=== PATIENT | male | born 1945 | race Caucasian/White ===

== ENCOUNTER → 2016-09-17 | Outpatient (CLI) | payer BC, MEDICARE, OTHER | END | disposition home or self-care (01) | LOC: C.PATHSPEC 12:45 | PROVIDERS: ATTEND Dermatology | DX: L82.1 Other seborrheic keratosis (principal) ==

== ENCOUNTER 2022-09-17 00:13 | Inpatient (IN) ==
[2022-09-17] MEDS ORDERED: SODIUM CHLORIDE 0.9% 1000ML 1,000 ML IV ONE ×2 (00:31→02:16)
[2022-09-17 00:50] LABS: HCO3 VBG 22 mmol/L; Oxygen Saturation VBG 93.7 %; PCO2 VBG 32 mmHg (38-50); PO2 VBG 66 mmHg; pH VBG 7.45 (7.36-7.41)
[2022-09-17 01:17] LABS: Albumin Level 3.4 gm/dl (3.4-5.0); BUN Creatinine Ratio 18.8 (10-20); Bilirubin Direct 0.3 mg/dl (0-0.2); Bilirubin,Total 0.9 mg/dl (0.2-1.0); Calcium 8.5 mg/dl (8.6-10.3); Creatinine Clr Calc Pharmacy 40.8 ml/min; Est GFR (African American) 50.1 ml/min; Est GFR (Non-African American) 43.2 ml/min; Magnesium 1.5 mg/dl (1.7-2.4); Potassium 3.7 mmol/L (3.5-5.1); Total Protein 6.3 gm/dl (6.0-8.3)
[2022-09-17 01:20] LABS: Basophils # (auto) 0.01 K/uL (0-0.2); Basophils % (auto) 0.2 %; Hematocrit (blood only) 36.7 % (42.0-52.0); Hemoglobin 12.6 g/dl (14.0-18.0); Immature Granulocytes # (auto) 0.11 K/uL (0.01-0.20); Immature Granulocytes % (auto) 2.1 %; Lymphocytes % (auto) 5.6 %; Mean Corpuscular Hemoglobin 31.7 pg (25.0-34.0); Mean Corpuscular Hgb Conc 34.3 g/dL (32.0-36.0); Mean Corpuscular Volume 92.4 fL (80.0-100.0); Mean Platelet Volume 10.7 fL (9.4-12.4); Monocytes # (auto) 0.12 K/uL (0.11-0.59); Monocytes % (auto) 2.3 %; Neutrophils # (auto) 4.77 K/uL (1.40-6.50); Neutrophils % (auto) 89.8 %; Platelet Count 67 K/uL (130-400); Platelet Estimate Decreased (Normal); RBC Morphology Unremarkable; RDW Coefficient of Variation 13.4 % (11.5-14.5); RDW Standard Deviation 45.9 fL (36.4-46.3); Red Blood Count 3.97 M/uL (4.70-6.10); White Blood Count 5.31 K/ul (4.8-10.8)
[2022-09-17 01:24] LABS: Troponin I High Sensitivity 20.7 pg/ml (0-20)
--- NOTE | 2022-09-17 01:25 | Emergency Department Note ---
Impression & Plan Severe sepsis, SEN (acute kidney injury), Acute UTI, Thrombocytopenia Admit to the [facility] ED Provider Note NAME: DIMA DEL VALLE AGE: 76 SEX: M ARRIVES VIA: Ambulance INFORMANT: Patient and his ED PROVIDER(S): Evelin Ruiz DO CHIEF COMPLAINT: Lower abdominal pain and shortness of breath PLAN: Disposition: Admit to the [facility] Condition: Critical MEDICAL DECISION MAKING: This is a 76-year-old male patient who has developed some increasing shortness of breath and lower abdominal pain. Patient then developed a fever. EMS was called and he was transported [facility]. The patient is a fairly healthy male. I have independently interpreted his labs which reveal a BUN of 29 and creatinine of 1.54 which represents acute kidney injury. There is no signifi cant leukocytosis. Patient has a hemoglobin of 12.6 and hematocrit of 36.7. Platelet count has dropped to 67. VBG was performed with the pH of 7.45, PCO2 of 32, bicarb of 22, and PO2 of 66. Patient did have elevated transaminases. There was concern for severe sepsis. Patient appeared dry on physical exam and was bolused with 30 mls per kilogram of IV crystalloid. Urinalysis appeared infected. Patient does describe a history of prostate issues in the past. Patient was treated with IV cefepime and IV vancomycin for severe sepsis and UTI. I did have some concern for a tickborne illness as the patient does spend significant time outside. Labs were also concerning for this. The patient was prophylactically treated with IV doxycycline as well. Triage Nursing notes reviewed and agree with them. Additional history obtained from his is at the bedside Vital Signs: reviewed and remarkable for hypotension and tachycardia Differential diagnosis: Sepsis, UTI, pneumonia, obstructive uropathy, diverticulitis, tickborne illness ER treatment provided: Cardiac monitoring Twelve-lead EKG IV normal saline boluses IV normal saline drip IV cefepime IV vancomycin IV doxycycline Diagnostics interpreted by me: ECG: Sinus tachycardia at [address] segment elevation or signs of ischemia. There is no ectopy. Cardiac Monitoring: Sinus tachycardia at 112 Laboratory studies: See below Imaging studies: As per my independent interpretation Portable chest x-ray: No cardiomegaly or pulmonary infiltrates/opacities HPI: 76/M arrives for evaluation of lower abdominal pain and shortness of b reath. Over the past 24 hours, the patient is developed increasing shortness of breath and lower abdominal pain. He noticed he had a fever and some hematuria. EMS was called and he was transported here. Patient explains that this is the first time he is ever been in the hospital. PAST MEDICAL HISTORY:Hypercholesterolemia; glaucoma Past surgical history: None SOCIAL HISTORY:Patient is retired from [employer]; he is HOME MEDICATIONS:See list ALLERGIES:None VITALS:See Below PHYSICAL EXAMINATION: HEENT: Head - normocephalic and atraumatic. Pupils are equal, round, and reactive to light. Extraocular eye muscles are intact, and sclera are anicteric. Nose - moist nasal mucosa without discharge. Mouth - moist buccal mucosa. Oropharynx is nonerythematous and there is no tonsillar exudate or edema noted. Neck: Supple; no cervical lymphadenopathy or nuchal rigidity Heart: Tachycardic rate and regular rhythm. There is a normal S1 and S2 with no murmurs, clicks, or gallops appreciated. Lungs: Clear to auscultation bilaterally with no wheezes, rales, or rhonchi. Abdomen: Soft and tender to palpation in the suprapubic region. There are no palpable pulsatile masses or hepatosplenomegaly. There is no guarding, rigidity, or rebound noted. Extremities: No evidence of cyanosis, clubbing, or edema. There are easily palpable peripheral pulses. Skin: warm and dry with good turgor and no rashes. ED COURSE: Times/Reassessments: 0020: Patient was evaluated in room B6. A complete history and physical was performed. A septic protocol was performed. An order was placed for continuous cardiac monitoring. The patient was in a sinus tachycardia at a rate of 112. A twelve- lead EKG was obtained as described above. A portable chest x-ray was performed. The patient was bolused with a liter of normal saline solution. A urine specimen was obtained. A second IV lock was initiated. Patient's blood pressure dropped and he was given an additional 1500 cc of IV crystalloid fluids. There was concern for severe sepsis. The patient was given a dose of IV cefepime. I added IV vancomycin to the antibiotic regimen. I reviewed laboratory and x-ray findings with the patient. We talked about the amount of time the patient spends outside. She denies any obvious tick bites but I still felt it would be prudent to add IV doxycycline. Patient's blood pressure remained marginal. He was placed on IV normal saline drip. I have personally spent greater than 60 minutes of critical care time in the direct management of this patient. This includes bedside care, interpretation of diagnostic studies, and testing, discussion with consultants, patient, and family members, and other required patient management activities. This 60 minutes is in excess of all separately billable procedures. Evelin Ruiz DO Past Med/Surg History Social History Smoking Status: Former smoker Tobacco Type: Pipe Second Hand Exposure: No; Do You Dip or Chew Tobacco: No; Tobacco Cessation Education Requested by Patient: No Hx Alcohol Use: No Hx Substance Use: No Preferred Language: Portuguese Communication Ability: Effective Beliefs That Will Affect Care: None Current Living Situation: Spouse Other Information That Helps Us Care for You: No Feels Safe at Home: Yes Safety Concerns: Feels Safe At This Time Assistive Devices: None Allergies Allergies Allergy/AdvReac Type Severity Reaction Status Date / Time Sulfa (Sulfonamide Allergy Intermediate Rash Verified 09/17/22 04:08 Antibiotics) Home Meds Home Medications Medication Instructions Recorded Confirmed aspirin 81 mg PO DAILY 09/17/22 09/17/22 simvastatin 10 mg tablet 10 mg PO HS 09/17/22 09/17/22 timolol maleate 0.5 % eye drops 1 drp OPB DAILY 09/17/22 09/17/22 Results & Data (ED) Vital Signs Vital Signs - 24 hr 09/17/22 00:23 09/17/22 00:32 09/17/22 00:32 Temperature 39.2 C H Temperature Source Oral Pulse Rate 106 H 108 H Respiratory Rate 17 26 H Respiratory Effort / Characteristics Short of Breath Respiratory Depth Normal Respiratory Pattern Regular Blood Pressure 95/63 L Blood Pressure Mean 73 Pulse Oximetry 86 L 93 92 Oxygen Delivery Method Room Air Nasal Cannula Nasal Cannula Oxygen Flow Rate 3 3 Sepsis Recent Fever Within 48 Hours Yes Sepsis New/Unexplained Change in Mental Status No Sepsis Action Taken by Nursing Physician Notified 09/17/22 00:47 09/17/22 00:41 09/17/22 01:00 Temperature Temperature Source Pulse Rate 112 H 102 H 100 H Respiratory Rate 22 27 H Respiratory Effort / Characteristics Respiratory Depth Respiratory Pattern Blood Pressure 104/66 Blood Pressure Mean 78 Pulse Oximetry 93 93 Oxygen Delivery Method Nasal Cannula Oxygen Flow Rate 3 Sepsis Recent Fever Within 48 Hours Sepsis New/Unexplained Change in Mental Status Sepsis Action Taken by Nursing 09/17/22 01:30 09/17/22 02:00 09/17/22 02:30 Temperature Temperature Source Pulse Rate 100 H 95 H 98 H Respiratory Rate 25 H 26 H 26 H Respiratory Effort / Characteristics Respiratory Depth Respiratory Pattern Blood Pressure 98/66 L 93/54 L 92/58 L Blood Pressure Mean 76 67 69 Pulse Oximetry 94 92 93 Oxygen Delivery Method Nasal Cannula Nasal Cannula Nasal Cannula Oxygen Flow Rate 3 3 3 Sepsis Recent Fever Within 48 Hours Sepsis New/Unexplained Change in Mental Status Sepsis Action Taken by Nursing 09/17/22 03:00 Temperature Temperature Source Pulse Rate 94 H Respiratory Rate 26 H Respiratory Effort / Characteristics Respiratory Depth Respiratory Pattern Blood Pressure Blood Pressure Mean Pulse Oximetry 96 Oxygen Delivery Method Nasal Cannula Oxygen Flow Rate 3 Sepsis Recent Fever Within 48 Hours Sepsis New/Unexplained Change in Mental Status Sepsis Action Taken by Nursing Laboratory Data 09/17/22 00:38 09/17/22 00:38 Lab Results 09/17/22 09/17/22 09/17/22 Range/Units 00:38 00:38 00:38 WBC 5.31 (4.8-10.8) K/ul RBC 3.97 L (4.70-6.10) M/uL Hgb 12.6 L (14.0-18.0) g/dl Hct 36.7 L (42.0-52.0) % MCV 92.4 (80.0-100.0) fL MCH 31.7 (25.0-34.0) pg MCHC 34.3 (32.0-36.0) g/dL RDW Std Deviation 45.9 (36.4-46.3) fL RDW Coeff of Kimmy 13.4 (11.5-14.5) % Plt Count 67 L (130-400) K/uL MPV 10.7 (9.4-12.4) fL Immature Gran % (Auto) 2.1 % Neut % (Auto) 89.8 % Lymph % (Auto) 5.6 % [place] % (Auto) 2.3 % Eos % (Auto) 0.0 % Baso % (Auto) 0.2 % Reticulocyte % (Auto) (0.5-2.0) % Neut # (Auto) 4.77 (1.40-6.50) K/uL Lymph # (Auto) 0.30 L (1.2-3.4) K/uL [place] # (Auto) 0.12 (0.11-0.59) K/uL Eos # (Auto) 0.00 (0-0.50) K/uL Baso # (Auto) 0.01 (0-0.2) K/uL Reticulocyte # (0.02-0.10) 10^6/uL Immature Gran # (Auto) 0.11 (0.01-0.20) K/uL Platelet Estimate Decreased L (Normal) RBC Morphology Unremarkable APTT (21.0-31.0) Seconds PTT Ratio VBG pH 7.45 H (7.36-7.41) VBG pCO2 32 L (38-50) mmHg VBG pO2 66 mmHg VBG HCO3 22 mmol/L VBG O2 Saturation 93.7 % VBG Base Excess -1.0 mEq/L Sodium 134 L (136-145) mmol/L Potassium 3.7 (3.5-5.1) mmol/L Chloride 104 (98-107) mmol/L Carbon Dioxide 22 (21-32) mmol/L Anion Gap 8 (3-11) BUN 29 H (6-23) mg/dl Creatinine 1.54 H (0.6-1.4) mg/dl Est Cr Clr Drug Dosing 40.8 ml/min Est GFR ( Amer) 50.1 ml/min Est GFR (Non-Af Amer) 43.2 ml/min BUN/Creatinine Ratio 18.8 (10-20) Glucose 117 H (70-99(Fasting)) mg/dl Lactate (0.4-2.0) mmol/L Calcium 8.5 L (8.6-10.3) mg/dl Magnesium 1.5 L (1.7-2.4) mg/dl Total Bilirubin 0.9 (0.2-1.0) mg/dl Direct Bilirubin 0.3 H (0-0.2) mg/dl AST 48 H (13-39) U/L ALT 37 (7-52) U/L Alkaline Phosphatase 41 (34-104) U/L Total Creatine Kinase 181 (30-223) U/L Troponin I High Sens 20.7 H (0-20) pg/ml Total Protein 6.3 (6.0-8.3) gm/dl Albumin 3.4 (3.4-5.0) gm/dl Vitamin B12 (180-914) pg/ml Folate (>5.38) ng/ml Procalcitonin (0-0.5) ng/ml Urine Color Urine Appearance (Clear) Urine pH (4.5-7.5) Ur Specific [place] (1.000-1.030) Urine Protein (Negative) Urine Glucose (UA) (Negative) Urine Ketones (Negative) Urine Blood (Negative) Urine Nitrite (Negative) Urine Bilirubin (Negative) Urine Urobilinogen (Negative) Ur Leukocyte Esterase (Negative) Urine WBC (Auto) (0-5) /hpf Urine RBC (Auto) (0-4) /hpf U Hyaline Cast (Auto) (0-5) /lpf U Epithel Cells (Auto) (0-5) /lpf Urine Bacteria (Auto) (Negative) Urine Yeast Anaplasma Smear Babesia Smear Lyme Disease IgG Ab (Negative) Lyme Disease IgM Ab (Negative) SARS-CoV-2 (PCR) (Negative) Influenza Type A (PCR) (Neg) Influenza Type B (PCR) (Neg) RSV (RT-PCR) (Neg) 09/17/22 09/17/22 09/17/22 Range/Units 00:38 00:38 00:38 WBC (4.8-10.8) K/ul RBC (4.70-6.10) M/uL Hgb (14.0-18.0) g/dl Hct (42.0-52.0) % MCV (80.0-100.0) fL MCH (25.0-34.0) pg MCHC (32.0-36.0) g/dL RDW Std Deviation (36.4-46.3) fL RDW Coeff of Kimmy (11.5-14.5) % Plt Count (130-400) K/uL MPV (9.4-12.4) fL Immature Gran % (Auto) % Neut % (Auto) % Lymph % (Auto) % [place] % (Auto) % Eos % (Auto) % Baso % (Auto) % Reticulocyte % (Auto) (0.5-2.0) % Neut # (Auto) (1.40-6.50) K/uL Lymph # (Auto) (1.2-3.4) K/uL [place] # (Auto) (0.11-0.59) K/uL Eos # (Auto) (0-0.50) K/uL Baso # (Auto) (0-0.2) K/uL Reticulocyte # (0.02-0.10) 10^6/uL Immature Gran # (Auto) (0.01-0.20) K/uL Platelet Estimate (Normal) RBC Morphology APTT 28.6 (21.0-31.0) Seconds PTT Ratio 1.0 VBG pH (7.36-7.41) VBG pCO2 (38-50) mmHg VBG pO2 mmHg VBG HCO3 mmol/L VBG O2 Saturation % VBG Base Excess mEq/L Sodium (136-145) mmol/L Potassium (3.5-5.1) mmol/L Chloride (98-107) mmol/L Carbon Dioxide (21-32) mmol/L Anion Gap (3-11) BUN (6-23) mg/dl Creatinine (0.6-1.4) mg/dl Est Cr Clr Drug Dosing ml/min Est GFR ( Amer) ml/min Est GFR (Non-Af Amer) ml/min BUN/Creatinine Ratio (10-20) Glucose (70-99(Fasting)) mg/dl Lactate 1.2 (0.4-2.0) mmol/L Calcium (8.6-10.3) mg/dl Magnesium (1.7-2.4) mg/dl Total Bilirubin (0.2-1.0) mg/dl Direct Bilirubin (0-0.2) mg/dl AST (13-39) U/L ALT (7-52) U/L Alkaline Phosphatase (34-104) U/L Total Creatine Kinase (30-223) U/L Troponin I High Sens (0-20) pg/ml Total Protein (6.0-8.3) gm/dl Albumin (3.4-5.0) gm/dl Vitamin B12 (180-914) pg/ml Folate (>5.38) ng/ml Procalcitonin 4.64 H (0-0.5) ng/ml Urine Color Urine Appearance (Clear) Urine pH (4.5-7.5) Ur Specific [place] (1.000-1.030) Urine Protein (Negative) Urine Glucose (UA) (Negative) Urine Ketones (Negative) Urine Blood (Negative) Urine Nitrite (Negative) Urine Bilirubin (Negative) Urine Urobilinogen (Negative) Ur Leukocyte Esterase (Negative) Urine WBC (Auto) (0-5) /hpf Urine RBC (Auto) (0-4) /hpf U Hyaline Cast (Auto) (0-5) /lpf U Epithel Cells (Auto) (0-5) /lpf Urine Bacteria (Auto) (Negative) Urine Yeast Anaplasma Smear Babesia Smear Lyme Disease IgG Ab (Negative) Lyme Disease IgM Ab (Negative) SARS-CoV-2 (PCR) (Negative) Influenza Type A (PCR) (Neg) Influenza Type B (PCR) (Neg) RSV (RT-PCR) (Neg) 09/17/22 09/17/22 09/17/22 Range/Units 00:40 02:00 02:36 WBC (4.8-10.8) K/ul RBC (4.70-6.10) M/uL Hgb (14.0-18.0) g/dl Hct (42.0-52.0) % MCV (80.0-100.0) fL MCH (25.0-34.0) pg MCHC (32.0-36.0) g/dL RDW Std Deviation (36.4-46.3) fL RDW Coeff of Kimmy (11.5-14.5) % Plt Count (130-400) K/uL MPV (9.4-12.4) fL Immature Gran % (Auto) % Neut % (Auto) % Lymph % (Auto) % [place] % (Auto) % Eos % (Auto) % Baso % (Auto) % Reticulocyte % (Auto) (0.5-2.0) % Neut # (Auto) (1.40-6.50) K/uL Lymph # (Auto) (1.2-3.4) K/uL [place] # (Auto) (0.11-0.59) K/uL Eos # (Auto) (0-0.50) K/uL Baso # (Auto) (0-0.2) K/uL Reticulocyte # (0.02-0.10) 10^6/uL Immature Gran # (Auto) (0.01-0.20) K/uL Platelet Estimate (Normal) RBC Morphology APTT (21.0-31.0) Seconds PTT Ratio VBG pH (7.36-7.41) VBG pCO2 (38-50) mmHg VBG pO2 mmHg VBG HCO3 mmol/L VBG O2 Saturation % VBG Base Excess mEq/L Sodium (136-145) mmol/L Potassium (3.5-5.1) mmol/L Chloride (98-107) mmol/L Carbon Dioxide (21-32) mmol/L Anion Gap (3-11) BUN (6-23) mg/dl Creatinine (0.6-1.4) mg/dl Est Cr Clr Drug Dosing ml/min Est GFR ( Amer) ml/min Est GFR (Non-Af Amer) ml/min BUN/Creatinine Ratio (10-20) Glucose (70-99(Fasting)) mg/dl Lactate (0.4-2.0) mmol/L Calcium (8.6-10.3) mg/dl Magnesium (1.7-2.4) mg/dl Total Bilirubin (0.2-1.0) mg/dl Direct Bilirubin (0-0.2) mg/dl AST (13-39) U/L ALT (7-52) U/L Alkaline Phosphatase (34-104) U/L Total Creatine Kinase (30-223) U/L Troponin I High Sens (0-20) pg/ml Total Protein (6.0-8.3) gm/dl Albumin (3.4-5.0) gm/dl Vitamin B12 (180-914) pg/ml Folate (>5.38) ng/ml Procalcitonin (0-0.5) ng/ml Urine Color Yellow Urine Appearance Cloudy A (Clear) Urine pH 6.0 (4.5-7.5) Ur Specific [place] 1.016 (1.000-1.030) Urine Protein 1+ H (Negative) Urine Glucose (UA) Negative (Negative) Urine Ketones Negative (Negative) Urine Blood 3+ H (Negative) Urine Nitrite Positive A (Negative) Urine Bilirubin Negative (Negative) Urine Urobilinogen Negative (Negative) Ur Leukocyte Esterase 3+ H (Negative) Urine WBC (Auto) >30 H (0-5) /hpf Urine RBC (Auto) >30 H (0-4) /hpf U Hyaline Cast (Auto) 0 (0-5) /lpf U Epithel Cells (Auto) 5-10 H (0-5) /lpf Urine Bacteria (Auto) Negative (Negative) Urine Yeast Not Reportable Anaplasma Smear Babesia Smear Lyme Disease IgG Ab Negative (Negative) Lyme Disease IgM Ab Negative (Negative) SARS-CoV-2 (PCR) NEGATIVE (Negative) Influenza Type A (PCR) Negative (Neg) Influenza Type B (PCR) Negative (Neg) RSV (RT-PCR) Negative (Neg) 09/17/22 09/17/22 Range/Units 02:36 02:36 WBC (4.8-10.8) K/ul RBC (4.70-6.10) M/uL Hgb (14.0-18.0) g/dl Hct (42.0-52.0) % MCV (80.0-100.0) fL MCH (25.0-34.0) pg MCHC (32.0-36.0) g/dL RDW Std Deviation (36.4-46.3) fL RDW Coeff of Kimmy (11.5-14.5) % Plt Count (130-400) K/uL MPV (9.4-12.4) fL Immature Gran % (Auto) % Neut % (Auto) % Lymph % (Auto) % [place] % (Auto) % Eos % (Auto) % Baso % (Auto) % Reticulocyte % (Auto) 1.4 (0.5-2.0) % Neut # (Auto) (1.40-6.50) K/uL Lymph # (Auto) (1.2-3.4) K/uL [place] # (Auto) (0.11-0.59) K/uL Eos # (Auto) (0-0.50) K/uL Baso # (Auto) (0-0.2) K/uL Reticulocyte # 0.05 (0.02-0.10) 10^6/uL Immature Gran # (Auto) (0.01-0.20) K/uL Platelet Estimate (Normal) RBC Morphology APTT (21.0-31.0) Seconds PTT Ratio VBG pH (7.36-7.41) VBG pCO2 (38-50) mmHg VBG pO2 mmHg VBG HCO3 mmol/L VBG O2 Saturation % VBG Base Excess mEq/L Sodium (136-145) mmol/L Potassium (3.5-5.1) mmol/L Chloride (98-107) mmol/L Carbon Dioxide (21-32) mmol/L Anion Gap (3-11) BUN (6-23) mg/dl Creatinine (0.6-1.4) mg/dl Est Cr Clr Drug Dosing ml/min Est GFR ( Amer) ml/min Est GFR (Non-Af Amer) ml/min BUN/Creatinine Ratio (10-20) Glucose (70-99(Fasting)) mg/dl Lactate (0.4-2.0) mmol/L Calcium (8.6-10.3) mg/dl Magnesium (1.7-2.4) mg/dl Total Bilirubin (0.2-1.0) mg/dl Direct Bilirubin (0-0.2) mg/dl AST (13-39) U/L ALT (7-52) U/L Alkaline Phosphatase (34-104) U/L Total Creatine Kinase (30-223) U/L Troponin I High Sens (0-20) pg/ml Total Protein (6.0-8.3) gm/dl Albumin (3.4-5.0) gm/dl Vitamin B12 365 (180-914) pg/ml Folate 20.42 (>5.38) ng/ml Procalcitonin (0-0.5) ng/ml Urine Color Urine Appearance (Clear) Urine pH (4.5-7.5) Ur Specific [place] (1.000-1.030) Urine Protein (Negative) Urine Glucose (UA) (Negative) Urine Ketones (Negative) Urine Blood (Negative) Urine Nitrite (Negative) Urine Bilirubin (Negative) Urine Urobilinogen (Negative) Ur Leukocyte Esterase (Negative) Urine WBC (Auto) (0-5) /hpf Urine RBC (Auto) (0-4) /hpf U Hyaline Cast (Auto) (0-5) /lpf U Epithel Cells (Auto) (0-5) /lpf Urine Bacteria (Auto) (Negative) Urine Yeast Anaplasma Smear See Comment Babesia Smear See Comment Lyme Disease IgG Ab (Negative) Lyme Disease IgM Ab (Negative) SARS-CoV-2 (PCR) (Negative) Influenza Type A (PCR) (Neg) Influenza Type B (PCR) (Neg) RSV (RT-PCR) (Neg) Administered Medications Potassium Chloride/Sodium Chloride (Normal Saline W/20 Meq Kcl) 20 meq in 1,000 mls @ 100 mls/hr IV .Q10H ONE; Protocol Stop: 09/17/22 12:37 Last Admin: 09/17/22 04:35 Dose: 100 mls/hr Documented By: VIANNEY Discontinued Medications Acetaminophen (Acetaminophen 325 Mg Tab) 325 mg PO NOW STA Stop: 09/17/22 02:32 Last Admin: 09/17/22 03:53 Dose: 325 mg Documented By: DORIAN Sodium Chloride (Nss 1000ml) 1,000 mls @ 999 mls/hr IV .Q1H1M ONE Stop: 09/17/22 01:31 Last Infusion: 09/17/22 01:59 Dose: 0 mls/hr Documented By: Admin: 09/17/22 01:00 Dose: 999 mls/hr Documented By: DARWIN Sodium Chloride (Nss) 500 mls @ 999 mls/hr IV .Q31M ONE Stop: 09/17/22 02:46 Last Infusion: 09/17/22 04:33 Dose: 0 mls/hr Documented By: Admin: 09/17/22 03:14 Dose: 999 mls/hr Documented By: DARWIN Sodium Chloride (Nss 1000ml) 1,000 mls @ 999 mls/hr IV .Q1H1M ONE Stop: 09/17/22 03:16 Last Infusion: 09/17/22 04:33 Dose: 0 mls/hr Documented By: Admin: 09/17/22 02:34 Dose: 999 mls/hr Documented By: DARWIN Doxycycline Hyclate 100 mg/ (Dextrose) 110 mls @ 50 mls/hr IV NOW STA Stop: 09/17/22 04:27 Last Infusion: 09/17/22 04:32 Dose: 0 mls/hr Documented By: Admin: 09/17/22 02:44 Dose: 50 mls/hr Documented By: DARWIN Cefepime HCl (Maxipime) 2,000 mg in 20 mls @ 5 mls/min IV NOW STA; Protocol Stop: 09/17/22 02:19 Last Admin: 09/17/22 02:34 Dose: 5 mls/min Documented By: DARWIN Vancomycin HCl 1,250 mg/ (Sodium Chloride) 525 mls @ 200 mls/hr IV NOW STA Stop: 09/17/22 04:55 Last Admin: 09/17/22 03:06 Dose: Not Given Documented By: DARWIN Magnesium Sulfate/Dextrose (Magnesium Sulfate / D5w) 1 gm in 100 mls @ 50 mls/hr IV Q2H LISA Stop: 09/17/22 06:44 Last Admin: 09/17/22 06:12 Dose: 50 mls/hr Documented By: Infusion: 09/17/22 06:12 Dose: 50 mls/hr Documented By: Admin: 09/17/22 04:36 Dose: 50 mls/hr Documented By: VIANNEY Imaging Data Radiologist's Impression: Chest X-Ray 09/17/22 00:32 SINGLE VIEW CHEST CLINICAL HISTORY: Sepsis. FINDINGS: An AP, portable, upright chest radiograph is obtained. No prior studies are available for comparison at the time of dictation. The cardiomediastinal silhouette is top normal for projection. There is bibasilar scarring/atelectasis. The lungs and pleural spaces are otherwise clear. No pneumothorax is seen. The skeletal structures are osteopenic. The bony thorax is grossly intact. IMPRESSION: No acute cardiopulmonary abnormality. ACT 112: Negative or not required by law. Electronically signed by: Jin Rae M.D. 09/17/2022 7:11 AM Abdomen/Pelvis CT 09/17/22 03:04 Exam(s): CT ABDOMEN + PELVIS Without Contrast EXAM: CT Abdomen and Pelvis Without Intravenous Contrast CLINICAL HISTORY: Reason for exam: abd pain. TECHNIQUE: Axial computed tomography images of the abdomen and pelvis without intravenous contrast. Automated exposure control was utilized for the study. A dose lowering technique was utilized adhering to the principles of ALARA. COMPARISON: No relevant prior studies available. FINDINGS: Lung bases: Mild areas of subsegmental atelectasis in both lung bases. ABDOMEN: Liver: Unremarkable. Gallbladder and bile ducts: Unremarkable. No calcified stones. No ductal dilation. Pancreas: Unremarkable. No ductal dilation. Spleen: Unremarkable. No splenomegaly. Adrenals: Unremarkable. No mass. Kidneys and ureters: Very extensive parapelvic cysts in both kidneys. Homogeneous 3.7 cm cortical cyst in the right kidney. No urinary tract calculus or obstruction. Stomach and bowel: Unremarkable. No obstruction. No mucosal thickening. PELVIS: Appendix: No findings to suggest acute appendicitis. Bladder: Very distended urinary bladder with the dome reaching the level of the umbilicus. The bladder wall is trabeculated in some areas. Reproductive: Enlarged, irregular prostate gland, bulging into the base of the bladder. ABDOMEN and PELVIS: Intraperitoneal space: Unremarkable. No free air. No significant fluid collection. Bones/joints: No acute fracture. No dislocation. Soft tissues: Unremarkable. Vasculature: Unremarkable. No abdominal aortic aneurysm. Lymph nodes: Unremarkable. No enlarged lymph nodes. IMPRESSION: No acute findings in the abdomen or pelvis. Very distended urinary bladder with trabeculated wall. This likely is due to chronic bladder outlet obstruction. The prostate gland is enlarged and lobulated, extending into the base of the bladder. Electronically signed by: Johnnie Webb MD 09/17/22 06:10 AM Discharge Plan Visit Data Chief Complaint: Urinary Symptoms Stated Complaint: UTI-PASSING BLOOD ED Provider: Evelin Ruiz Discharge Problem: Severe sepsis, SEN (acute kidney injury), Acute UTI, Thrombocytopenia Patient Disposition: Admitted As Inpatient Discharge Instructions Interventions: ED Discharge Assessment Last Done: 09/17/22 04:04
[2022-09-17 01:28] LABS: Influenza A virus by PCR Negative (Neg); Influenza B virus by PCR Negative (Neg); RSV by PCR Negative (Neg); SARS CoV2 RNA(COVID-19) Ceph NEGATIVE (Negative)
[2022-09-17 02:11] LABS: Appearance Urine Cloudy (Clear); Bacteria Urine Automated Negative (Negative); Bilirubin Urine Negative (Negative); Blood Urine 3+ (Negative); Cast Urine Automated 0 /lpf (0-5); Color Urine Yellow; Glucose Urine UA Negative (Negative); Ketones Urine Negative (Negative); Leukocyte Esterase Urine 3+ (Negative); Nitrite Urine Positive (Negative); Protein Urine 1+ (Negative); RBC Urine Automated >30 /hpf (0-4); Specific Gravity Urine 1.016 (1.000-1.030); Urobilinogen Urine Negative (Negative); WBC Urine Automated >30 /hpf (0-5)
[2022-09-17] MEDS ORDERED: SODIUM CHLORIDE 0.9% 500 ML IV ONE (02:16)
[2022-09-17] MEDS ORDERED: DOXYCYCLINE HYCLATE 100 MG in DEXTROSE 5% 100 ML IV STA (02:16)
[2022-09-17] MEDS ORDERED: CEFEPIME 2,000 MG/20 ML VIAL IV STA (02:16)
[2022-09-17] MEDS ORDERED: VANCOMYCIN CONSULT ACTIVE PRN (02:16)
[2022-09-17] MEDS ORDERED: VANCOMYCIN HCL 1,250 MG in SODIUM CHLORIDE 0.9% 500 ML IV STA (02:18)
[2022-09-17] MEDS ORDERED: ACETAMINOPHEN 325 MG TAB PO STA (02:31)
[2022-09-17] MEDS ORDERED: NSS + 20MEQ KCL 20 MEQ/1,000 ML BAG IV ONE (02:38)
[2022-09-17 02:54] LABS: Partial Thromboplastin Time 28.6 Seconds (21.0-31.0)
[2022-09-17] MEDS ORDERED: PROMETHAZINE HCL 6.25 MG in SODIUM CHLORIDE 0.9% 50 ML IV PRN (03:09)
[2022-09-17] MEDS ORDERED: traMADol HCL 50 MG TABLET PO PRN (03:09)
--- NOTE | 2022-09-17 03:10 | History & Physical Report ---
Date of Service September 17, 2022 Assessment & Plan (1) Severe sepsis: Plan: SIRS plus ARF Secondary to complicated UTI, history of BPH rule out obstructive uropathy given hematuria/pain complaints Rule out tickborne infection Anemia secondary to hematuria Troponin elevation secondary to illness Thrombocytopenia secondary to illness hyperlipidemia on statin Rx Hyperglycemia rule out DM PCU given borderline BP CS, Cefepime for complicated UTI Follow-up tick panel CT abdomen pelvis Re: Hematuria N.p.o. for now until CT abdomen pelvis results out Follow creatinine response to IVF Anemia work-up, transfuse PRBC if hemoglobin less than 7 and or from symptomatic anemia Follow troponin, TTE for progression Check hemoglobin A1c DVT prophylaxis. SCDs Re: Thrombocytopenia Full code Text document was generated using [employer] voice recognition software. It may contain grammatical or spelling errors. Kindly contact undersigned for clarification of any documentation item in question. History of Present Illness Chief Complaint: Fever, chills, abdominal pain Primary Care Provider: Hudson Robin MD History obtained from patient and records. Medical history significant for hyperlipidemia, BPH, glaucoma Few days history of achy lower abdominal discomfort associated with hematuria, urgency. Patient noted fever, chills. Shortness of breath from weakness as per patient. Poor appetite. No chest pain, no cough symptoms, no headache symptoms. Denies diarrhea. No recollection of recent tick bites but acknowledges presence of ticks around residence. Patient brought to ER for evaluation. SBP 90s upon arrival at the ER. Cefepime and doxycycline given for sepsis. Medical History as above Surgical History : None Family History : Stomach cancer, DM, stroke Personal/Social history : Past pipe use, no EtOH intake Allergies Allergy/AdvReac Type Severity Reaction Status Date / Time Sulfa (Sulfonamide Allergy Intermediate Rash Verified 09/17/22 04:08 Antibiotics) Past Med/Surg History Social History Smoking Status: Former smoker Tobacco Type: Pipe Second Hand Exposure: No; Do You Dip or Chew Tobacco: No; Tobacco Cessation Education Requested by Patient: No Hx Alcohol Use: No Hx Substance Use: No Preferred Language: Ethiopian Communication Ability: Effective Beliefs That Will Affect Care: None Current Living Situation: Spouse Other Information That Helps Us Care for You: No Feels Safe at Home: Yes Safety Concerns: Feels Safe At This Time Assistive Devices: None Review of Systems Review of Systems: As per HPI, all other systems reviewed and negative Physical Exam Physical Exam: GENERAL: Comfortable, pleasant, no respiratory distress SKIN: Pallor, warm HEENT: Alopecia, bespectacled, pale palpebral conjunctivae, no ptosis, dry buccal mucosa, nasal cannula in place NECK : Supple, no tenderness CHEST : CTA, no tenderness HEART : RRR, no obvious murmurs ABDOMEN: Some distention, hypogastric tenderness EXTREMITIES : No LE swelling/tenderness, no other conspicuous deformities noted NEUROLOGIC : Coherent, no facial asymmetry, no other gross focality Results & Data Results & Data Vital Signs (Past 12 Hours) Vital Signs Temp Pulse Resp BP Pulse Ox O2 Del Method O2 Flow Rate 09/17/22 02:30 98 H 26 H 92/58 L 93 Nasal Cannula 3 09/17/22 02:00 95 H 26 H 93/54 L 92 Nasal Cannula 3 09/17/22 01:30 100 H 25 H 98/66 L 94 Nasal Cannula 3 09/17/22 01:00 100 H 27 H 104/66 93 Nasal Cannula 3 09/17/22 00:41 102 H 22 93 09/17/22 00:47 112 H 09/17/22 00:32 39.2 C H 108 H 26 H 95/63 L 92 Nasal Cannula 3 09/17/22 00:32 106 H 17 93 Nasal Cannula 3 09/17/22 00:23 86 L Room Air Laboratory Results Laboratory Results WBC 5.31 K/ul (4.8-10.8) 09/17/22 00:38 RBC 3.97 M/uL (4.70-6.10) L 09/17/22 00:38 Hgb 12.6 g/dl (14.0-18.0) L 09/17/22 00:38 Hct 36.7 % (42.0-52.0) L 09/17/22 00:38 MCV 92.4 fL (80.0-100.0) 09/17/22 00:38 MCH 31.7 pg (25.0-34.0) 09/17/22 00:38 MCHC 34.3 g/dL (32.0-36.0) 09/17/22 00:38 RDW Std Deviation 45.9 fL (36.4-46.3) 09/17/22 00:38 RDW Coeff of Kimmy 13.4 % (11.5-14.5) 09/17/22 00:38 Plt Count 67 K/uL (130-400) L 09/17/22 00:38 MPV 10.7 fL (9.4-12.4) 09/17/22 00:38 Immature Gran % (Auto) 2.1 % 09/17/22 00:38 Neut % (Auto) 89.8 % 09/17/22 00:38 Lymph % (Auto) 5.6 % 09/17/22 00:38 [place] % (Auto) 2.3 % 09/17/22 00:38 Eos % (Auto) 0.0 % 09/17/22 00:38 Baso % (Auto) 0.2 % 09/17/22 00:38 Neut # (Auto) 4.77 K/uL (1.40-6.50) 09/17/22 00:38 Lymph # (Auto) 0.30 K/uL (1.2-3.4) L 09/17/22 00:38 [place] # (Auto) 0.12 K/uL (0.11-0.59) 09/17/22 00:38 Eos # (Auto) 0.00 K/uL (0-0.50) 09/17/22 00:38 Baso # (Auto) 0.01 K/uL (0-0.2) 09/17/22 00:38 Immature Gran # (Auto) 0.11 K/uL (0.01-0.20) 09/17/22 00:38 Platelet Estimate Decreased (Normal) L 09/17/22 00:38 RBC Morphology Unremarkable 09/17/22 00:38 APTT 28.6 Seconds (21.0-31.0) 09/17/22 00:38 PTT Ratio 1.0 09/17/22 00:38 VBG pH 7.45 (7.36-7.41) H 09/17/22 00:38 VBG pCO2 32 mmHg (38-50) L 09/17/22 00:38 VBG pO2 66 mmHg 09/17/22 00:38 VBG HCO3 22 mmol/L 09/17/22 00:38 VBG O2 Saturation 93.7 % 09/17/22 00:38 VBG Base Excess -1.0 mEq/L 09/17/22 00:38 Sodium 134 mmol/L (136-145) L 09/17/22 00:38 Potassium 3.7 mmol/L (3.5-5.1) 09/17/22 00:38 Chloride 104 mmol/L (98-107) 09/17/22 00:38 Carbon Dioxide 22 mmol/L (21-32) 09/17/22 00:38 Anion Gap 8 (3-11) 09/17/22 00:38 BUN 29 mg/dl (6-23) H 09/17/22 00:38 Creatinine 1.54 mg/dl (0.6-1.4) H 09/17/22 00:38 Est Cr Clr Drug Dosing 40.8 ml/min 06 00:38 Est GFR ( Amer) 50.1 ml/min 09/17/22 00:38 Est GFR (Non-Af Amer) 43.2 ml/min 09/17/22 00:38 BUN/Creatinine Ratio 18.8 (10-20) 09/17/22 00:38 Glucose 117 mg/dl (70-99(Fasting)) H 09/17/22 00:38 Lactate 1.2 mmol/L (0.4-2.0) 09/17/22 00:38 Calcium 8.5 mg/dl (8.6-10.3) L 09/17/22 00:38 Magnesium 1.5 mg/dl (1.7-2.4) L 09/17/22 00:38 Total Bilirubin 0.9 mg/dl (0.2-1.0) 09/17/22 00:38 Direct Bilirubin 0.3 mg/dl (0-0.2) H 09/17/22 00:38 AST 48 U/L (13-39) H 09/17/22 00:38 ALT 37 U/L (7-52) 09/17/22 00:38 Alkaline Phosphatase 41 U/L (34-104) 09/17/22 00:38 Total Creatine Kinase 181 U/L (30-223) 09/17/22 00:38 Troponin I High Sens 20.7 pg/ml (0-20) H 09/17/22 00:38 Total Protein 6.3 gm/dl (6.0-8.3) 09/17/22 00:38 Albumin 3.4 gm/dl (3.4-5.0) 09/17/22 00:38 Procalcitonin 4.64 ng/ml (0-0.5) H 09/17/22 00:38 Urine Color Yellow 09/17/22 02:00 Urine Appearance Cloudy (Clear) A 09/17/22 02:00 Urine pH 6.0 (4.5-7.5) 09/17/22 02:00 Ur Specific [place] 1.016 (1.000-1.030) 09/17/22 02:00 Urine Protein 1+ (Negative) H 09/17/22 02:00 Urine Glucose (UA) Negative (Negative) 09/17/22 02:00 Urine Ketones Negative (Negative) 09/17/22 02:00 Urine Blood 3+ (Negative) H 09/17/22 02:00 Urine Nitrite Positive (Negative) A 09/17/22 02:00 Urine Bilirubin Negative (Negative) 09/17/22 02:00 Urine Urobilinogen Negative (Negative) 09/17/22 02:00 Ur Leukocyte Esterase 3+ (Negative) H 09/17/22 02:00 Urine WBC (Auto) >30 /hpf (0-5) H 09/17/22 02:00 Urine RBC (Auto) >30 /hpf (0-4) H 09/17/22 02:00 U Hyaline Cast (Auto) 0 /lpf (0-5) 09/17/22 02:00 U Epithel Cells (Auto) 5-10 /lpf (0-5) H 09/17/22 02:00 Urine Bacteria (Auto) Negative (Negative) 09/17/22 02:00 Urine Yeast Not Reportable 09/17/22 02:00 SARS-CoV-2 (PCR) NEGATIVE (Negative) 09/17/22 00:40 Influenza Type A (PCR) Negative (Neg) 09/17/22 00:40 Influenza Type B (PCR) Negative (Neg) 09/17/22 00:40 RSV (RT-PCR) Negative (Neg) 09/17/22 00:40 Diagnostic Findings Chest x-ray per my interpretation borderline cardiomegaly EKG as per my interpretation : Rate 105, sinus tachycardia, LAD, LAFB, incomplete RBBB, T wave abnormalities inferior leads Code Status & VTE Plan VTE Prophylaxis Plan VTE Prophylaxis will be ordered: Yes
[2022-09-17 03:18] LABS: Reticulocyte % 1.4 % (0.5-2.0); Reticulocytes # 0.05 10^6/uL (0.02-0.10)
[2022-09-17 03:27] LABS: Lyme Ab IgG w/WB Rflx Negative (Negative); Lyme Ab IgM w/WB Rflx Negative (Negative)
[2022-09-17 04:32] LABS: Troponin I High Sensitivity 38.6 pg/ml (0-20)
[2022-09-17] MEDS ORDERED: ACETAMINOPHEN 325 MG TAB PO PRN (04:32)
[2022-09-17] MEDS: MAGNESIUM SULFATE / D5W 1 GM/100 ML BAG IV SCH ×2 (04:36→06:12)
[2022-09-17 04:48] LABS: Ferritin 389.2 ng/ml (8-388)
--- NOTE | 2022-09-17 06:11 | CT Scan Report ---
Exam(s): CT ABDOMEN + PELVIS Without Contrast EXAM: CT Abdomen and Pelvis Without Intravenous Contrast CLINICAL HISTORY: Reason for exam: abd pain. TECHNIQUE: Axial computed tomography images of the abdomen and pelvis without intravenous contrast. Automated exposure control was utilized for the study. A dose lowering technique was utilized adhering to the principles of ALARA. COMPARISON: No relevant prior studies available. FINDINGS: Lung bases: Mild areas of subsegmental atelectasis in both lung bases. ABDOMEN: Liver: Unremarkable. Gallbladder and bile ducts: Unremarkable. No calcified stones. No ductal dilation. Pancreas: Unremarkable. No ductal dilation. Spleen: Unremarkable. No splenomegaly. Adrenals: Unremarkable. No mass. Kidneys and ureters: Very extensive parapelvic cysts in both kidneys. Homogeneous 3.7 cm cortical cyst in the right kidney. No urinary tract calculus or obstruction. Stomach and bowel: Unremarkable. No obstruction. No mucosal thickening. PELVIS: Appendix: No findings to suggest acute appendicitis. Bladder: Very distended urinary bladder with the dome reaching the level of the umbilicus. The bladder wall is trabeculated in some areas. Reproductive: Enlarged, irregular prostate gland, bulging into the base of the bladder. ABDOMEN and PELVIS: Intraperitoneal space: Unremarkable. No free air. No significant fluid collection. Bones/joints: No acute fracture. No dislocation. Soft tissues: Unremarkable. Vasculature: Unremarkable. No abdominal aortic aneurysm. Lymph nodes: Unremarkable. No enlarged lymph nodes. IMPRESSION: No acute findings in the abdomen or pelvis. Very distended urinary bladder with trabeculated wall. This likely is due to chronic bladder outlet obstruction. The prostate gland is enlarged and lobulated, extending into the base of the bladder. Electronically signed by: Johnnie Webb MD 09/17/22 06:10 AM
--- NOTE | 2022-09-17 07:12 | XRay Report ---
SINGLE VIEW CHEST CLINICAL HISTORY: Sepsis. FINDINGS: An AP, portable, upright chest radiograph is obtained. No prior studies are available for c omparison at the time of dictation. The cardiomediastinal silhouette is top normal for projection. Th ere is bibasilar scarring/atelectasis. The lungs and pleural spaces are otherwise clear. No pneumotho rax is seen. The skeletal structures are osteopenic. The bony thorax is grossly intact. IMPRESSION: No acute cardiopulmonary abnormality. ACT 112: Negative or not required by law. Electronically signed by: Jin Rae M.D. 09/17/2022 7:11 AM
[2022-09-17 07:28] LABS: Hematocrit (blood only) 35.7 % (42.0-52.0); Hemoglobin 12.1 g/dl (14.0-18.0)
[2022-09-17 08:21] LABS: Estimated Average Glucose 108 mg/dl; Hemoglobin A1C 5.4 % (4.5-5.6)
[2022-09-17] MEDS: TIMOLOL MALEATE 0.5% OP SOLN 5 ML BTL OPB SCH (08:39)
--- NOTE | 2022-09-17 09:40 | Urology Consultation ---
Date of Consultation September 17, 2022 Assessment & Plan (1) Acute UTI: (2) SEN (acute kidney injury): (3) Urinary retention: Plan 76yo/M who presented with SOB and lower abdominal pain admitted with sepsis/UTI, ARF. CT abdomen pelvis on arrival notable for a severely distended bladder likely due to chronic bladder outlet obstruction, enlarged prostate, no urinary tract calculus or obstruction. Noland catheter placed by nursing staff with >1L urine output. Afebrile at present, nontoxic-appearing, SBP 90s. Labs show no leukocytosis, stable hemoglobin, creatinine 1.54. Urine and blood cultures are pending. On Cefepime, follow cultures and tailor as culture data becomes available. Noland catheter intact and draining clear yellow urine. Continue to monitor. Continue supportive care and antibiotic therapy. Continue to trend labs. Will need to maintain the Noland catheter for maximum decompression and bladder rest for 7-10 days. Will arrange outpatient voiding trial. Can consider addition of tamsulosin. Urology will follow. History of Present Illness Attending Physician: Javier Mack MD History of Present Illness 76-year-old male patient with a PHMx including hyperlipidemia, BPH, glaucoma who presented with SOB and lower abdominal pain and admitted with sepsis, ARF. He was febrile at 39.2 and SBP 90s upon arrival at the ER. Labs show no leukocytosis, hemoglobin of 12.6, and creatinine 1.54. Urinalysis with 3+blood, positive nitrite, 3+LE, negative bacteria. Patient was treated with IV cefepime and IV vancomycin. CT abdomen pelvis reviewed - Very distended urinary bladder with trabeculated wall. This likely is due to chronic bladder outlet obstruction. The prostate gland is enlarged and lobulated, extending into the base of the bladder. Very extensive parapelvic cysts in both kidneys.Homogeneous 3.7 cm cortical cyst in the right kidney. No urinary tract calculus or obstruction. Pt bladder scanned for 1459ml this morning. Noland placed by nursing staff. Patient examined at bedside this AM. Awake, resting in bed on arrival. No acute distress. Noland catheter intact, draining clear yellow urine (>1L urine output following noland placement). He denies any pain or discomfort at present. Denies fevers, chills, nausea, vomiting. He reports symptoms started Saturday. He noticed difficulty with urination and mild hematuria. Has never seen a urologist. Denies prior urological hx. He reports PCP follows PSA lab. Reports elevated PSA 1-2 years ago. Denies personal or family hx of prostate cancer. Allergies Allergy/AdvReac Type Severity Reaction Status Date / Time Sulfa (Sulfonamide Allergy Intermediate Rash Verified 09/17/22 04:08 Antibiotics) Home Medications Medication Instructions Recorded Confirmed Type aspirin 81 mg PO DAILY 09/17/22 09/17/22 History simvastatin 10 mg tablet 10 mg PO HS 09/17/22 09/17/22 History timolol maleate 0.5 % eye drops 1 drp OPB DAILY 09/17/22 09/17/22 History Patient History Social History Smoking Status: Former smoker Tobacco Type: Pipe Second Hand Exposure: No; Do You Dip or Chew Tobacco: No; Tobacco Cessation Education Requested by Patient: No Hx Alcohol Use: No Hx Substance Use: No Preferred Language: Spanish Communication Ability: Effective Beliefs That Will Affect Care: None Current Living Situation: Spouse Other Information That Helps Us Care for You: No Feels Safe at Home: Yes Safety Concerns: Feels Safe At This Time Assistive Devices: None Review of Systems Review of Systems: All systems reviewed & are unremarkable except as noted in HPI & below Physical Exam Constitutional: well developed and well nourished; no acute distress Neck: normal visual inspection Respiratory: normal respiratory effort; no respiratory distress and no labored breathing Gastrointestinal (Abdomen): Percussion/Palpation: abdomen soft; abdomen nontender and no guarding Musculoskeletal: Head/Neck/Chest: normocephalic Skin: No visible rashes or lesions to exposed skin areas Neurologic: moves all extremities and awake Psychiatric: A+Ox3, euthymic affect Genitourinary: Noland catheter intact Results & Data Vital Signs (Past 12 Hours) Vital Signs Temp Pulse Pulse Resp BP BP Pulse Ox 09/17/22 07:45 09/17/22 07:43 36.7 C 87 19 95/57 L 92 09/17/22 06:41 82 09/17/22 04:42 09/17/22 04:40 89 09/17/22 04:31 37.2 C 98 H 18 129/80 92 09/17/22 04:04 37.3 C 92 H 21 93/64 L 93 09/17/22 03:00 94 H 26 H 96 09/17/22 02:30 98 H 26 H 92/58 L 93 09/17/22 02:00 95 H 26 H 93/54 L 92 09/17/22 01:30 100 H 25 H 98/66 L 94 09/17/22 01:00 100 H 27 H 104/66 93 09/17/22 00:41 102 H 22 93 09/17/22 00:47 112 H 09/17/22 00:32 39.2 C H 108 H 26 H 95/63 L 92 09/17/22 00:32 106 H 17 93 09/17/22 00:23 86 L O2 Del Method O2 Flow Rate 09/17/22 07:45 Nasal Cannula 3 09/17/22 07:43 Nasal Cannula 3 09/17/22 06:41 09/17/22 04:42 Room Air 3 09/17/22 04:40 09/17/22 04:31 Nasal Cannula 3 09/17/22 04:04 Nasal Cannula 3 09/17/22 03:00 Nasal Cannula 3 09/17/22 02:30 Nasal Cannula 3 09/17/22 02:00 Nasal Cannula 3 09/17/22 01:30 Nasal Cannula 3 09/17/22 01:00 Nasal Cannula 3 09/17/22 00:41 09/17/22 00:47 09/17/22 00:32 Nasal Cannula 3 09/17/22 00:32 Nasal Cannula 3 09/17/22 00:23 Room Air PG Care Time/CCT Total # of Minutes Spent Total Time Spent with Patient: Total time spent is greater than 50% in coordination of care (as documented) at patient's floor/unit and/or counseling patient: Coding Level of Care Code 34466 INT INP/OBS CARE 2/55MIN Diagnoses Acute UTI N39.0 SEN (acute kidney injury) N17.9 Urinary retention R33.9
[2022-09-17] MEDS: ACETAMINOPHEN 325 MG TAB PO SCH ×2 (13:57→20:36)
[2022-09-17] MEDS: CEFEPIME 2,000 MG in SYRINGE 0 ML IV SCH (13:59)
--- NOTE | 2022-09-17 16:18 | Hospitalist Progress Note ---
Date of Service September 17, 2022 Assessment & Plan (1) Severe sepsis: (2) Acute UTI: (3) SEN (acute kidney injury): (4) Urinary retention: (5) Thrombocytopenia: Plan 76-year-old male presented with lower abdominal discomfort and urinary urgency along with fever, admitted with UTI and urinary retention Sepsis with UTI-met SIRS criteria with fever and tachycardia on admission. Sepsis resolving. No leukocytosis, Pro-Guy elevated, UA suggestive of UTI -Continue cefepime pending blood and urine culture results. Urine retention-CT reviewed. Seen by urology-recommend continuing Silva at discharge for 7 to 10 days for bladder decompression and follow-up with urology in the office for voiding trial Thrombocytopenia-Lyme, Anaplasma, Babesia negative. No bleeding noted. Monitor platelet count Acute kidney injury-in setting of urinary retention, now on Silva. Creatinine 1.5. Status post IV fluid resuscitation. Avoid nephrotoxins. Recheck in a.m. Hypomagnesia-replete, recheck in AM. Elevated Trop-minimally elevated, flat trend. No chest pain. No need for further trending. Echo reviewed-EF 60 to 65%, grade 1 diastolic dysfunction, no significant valve abnormalities DVT prophylaxis-subcu heparin Disposition-continue IV cefepime pending blood and urine culture results. Continue Silva at discharge Admission and Anticipated Discharge Date Admission Date: September 17, 2022 Subjective Patient was seen and examined at bedside. He feels much better since admission. No more fever today. No nausea vomiting abdominal pain, shortness of breath. Review of Systems Review of Systems: All systems reviewed & are unremarkable except as noted in Subjective Physical Exam Physical Exam: General: Lying comfortably in bed, not in distress, on NC HEENT: EOMI, AVERY, MMM Chest: Clear breath sounds bilaterally, no wheezes or crackles CVS: Regular rate and rhythm, normal heart sounds, no murmur Abdomen: Soft, non tender, not distended, normal bowel sounds Neuro: Awake, alert, oriented, conversing well, non focal Extremities: No cyanosis, clubbing or edema : Silva with delmi urine Results & Data Results & Data Vital Signs (Past 12 Hours) Vital Signs Temp Pulse Pulse Resp BP Pulse Ox O2 Del Method 09/17/22 15:50 37.2 C 81 18 98/61 L 94 Room Air 09/17/22 11:49 36.6 C 89 20 104/64 92 Nasal Cannula 09/17/22 07:45 Nasal Cannula 09/17/22 07:43 36.7 C 87 19 95/57 L 92 Nasal Cannula 09/17/22 06:41 82 09/17/22 04:42 Room Air 09/17/22 04:40 89 09/17/22 04:31 37.2 C 98 H 18 129/80 92 Nasal Cannula O2 Flow Rate 09/17/22 15:50 1 09/17/22 11:49 2 09/17/22 07:45 3 09/17/22 07:43 3 09/17/22 06:41 09/17/22 04:42 3 09/17/22 04:40 09/17/22 04:31 3 Laboratory Results Short CBC 09/17/22 09/17/22 Range/Units 00:38 07:06 WBC 5.31 (4.8-10.8) K/ul Hgb 12.6 L 12.1 L (14.0-18.0) g/dl Hct 36.7 L 35.7 L (42.0-52.0) % Plt Count 67 L (130-400) K/uL BMP 09/17/22 00:38 Sodium 134 L Potassium 3.7 Chloride 104 Carbon Dioxide 22 BUN 29 H Creatinine 1.54 H Glucose 117 H Calcium 8.5 L Cardiac Enzymes 09/17/22 Range/Units 00:38 Total Creatine Kinase 181 (30-223) U/L Liver Function 09/17/22 Range/Units 00:38 Total Bilirubin 0.9 (0.2-1.0) mg/dl Direct Bilirubin 0.3 H (0-0.2) mg/dl AST 48 H (13-39) U/L ALT 37 (7-52) U/L Alkaline Phosphatase 41 (34-104) U/L Albumin 3.4 (3.4-5.0) gm/dl Urine 09/17/22 Range/Units 02:00 Urine Color Yellow Urine Appearance Cloudy A (Clear) Urine pH 6.0 (4.5-7.5) Ur Specific [place] 1.016 (1.000-1.030) Urine Protein 1+ H (Negative) Urine Glucose (UA) Negative (Negative) Medications Administered Current Inpatient Medications Acetaminophen (Acetaminophen 325 Mg Tab) 650 mg PO TID LISA Stop: 10/17/22 13:59 Last Admin: 09/17/22 13:57 Dose: 650 mg Promethazine HCl 6.25 mg/ (Sodium Chloride) 50.25 mls @ 201 mls/hr IV Q6H PRN PRN Reason: Nausea And Vomiting Stop: 10/17/22 03:08 Cefepime HCl 2,000 mg/ Syringe 20 mls @ 5 mls/min IV Q12H LISA; Protocol Stop: 09/27/22 13:59 Last Admin: 09/17/22 13:59 Dose: 5 mls/min Simvastatin (Simvastatin 10 Mg Tab) 10 mg PO HS LISA Stop: 10/17/22 20:59 Timolol Maleate (Timolol Maleate 0.5% Op Soln 5 Ml Btl) 1 drops OPB DAILY LISA Stop: 10/17/22 08:59 Last Admin: 09/17/22 08:39 Dose: 1 drops Tramadol HCl (Tramadol Hcl 50 Mg Tablet) 25 - 50 mg PO Q4H PRN PRN Reason: Pain Stop: 10/17/22 03:08
[2022-09-17] MEDS: SIMVASTATIN 10 MG TAB PO SCH (20:36)
[2022-09-18] MEDS ORDERED: ACETAMINOPHEN 325 MG TAB PO STA (00:11)
[2022-09-18] MEDS ORDERED: NSS + 20MEQ KCL 20 MEQ/1,000 ML BAG IV ONE (00:30)
[2022-09-18] MEDS: CEFEPIME 2,000 MG in SYRINGE 0 ML IV SCH ×2 (02:25→14:05)
[2022-09-18 07:19] LABS: Creatinine Clr Calc Pharmacy 63.5 ml/min; Est GFR (African American) 85.4 ml/min; Est GFR (Non-African American) 73.7 ml/min
[2022-09-18 07:20] LABS: BUN Creatinine Ratio 18.2 (10-20); Calcium 7.5 mg/dl (8.6-10.3); Magnesium 1.6 mg/dl (1.7-2.4); Phosphorus 1.7 mg/dl (2.5-4.9); Potassium 4.4 mmol/L (3.5-5.1)
[2022-09-18 07:32] LABS: Basophils # (auto) 0.02 K/uL (0-0.2); Basophils % (auto) 0.2 %; Eosinophils # (auto) 0.02 K/uL (0-0.50); Eosinophils % (auto) 0.2 %; Hematocrit (blood only) 35.3 % (42.0-52.0); Hemoglobin 11.8 g/dl (14.0-18.0); Immature Granulocytes # (auto) 0.09 K/uL (0.01-0.20); Immature Granulocytes % (auto) 0.9 %; Lymphocytes # (auto) 1.06 K/uL (1.2-3.4); Lymphocytes % (auto) 10.6 %; Mean Corpuscular Hemoglobin 30.8 pg (25.0-34.0); Mean Corpuscular Hgb Conc 33.4 g/dL (32.0-36.0); Mean Corpuscular Volume 92.2 fL (80.0-100.0); Mean Platelet Volume 11.3 fL (9.4-12.4); Monocytes # (auto) 2.01 K/uL (0.11-0.59); Monocytes % (auto) 20.2 %; Neutrophils # (auto) 6.76 K/uL (1.40-6.50); Neutrophils % (auto) 67.9 %; Platelet Count 56 K/uL (130-400); RDW Coefficient of Variation 13.7 % (11.5-14.5); RDW Standard Deviation 46.6 fL (36.4-46.3); Red Blood Count 3.83 M/uL (4.70-6.10); White Blood Count 9.96 K/ul (4.8-10.8)
[2022-09-18] MEDS ORDERED: POTASSIUM PHOS 3 MMOL/1 ML INFUSION IV STA (07:55)
[2022-09-18] MEDS ORDERED: POTASSIUM PHOSPHATE 24 MMOL in SODIUM CHLORIDE 0.9% 500 ML IV ONE (08:00)
[2022-09-18] MEDS: ACETAMINOPHEN 325 MG TAB PO SCH ×3 (08:33→20:17)
[2022-09-18] MEDS: CALCIUM CARBONATE 1250MG TAB PO SCH ×2 (08:35→20:16)
[2022-09-18] MEDS: MAGNESIUM CHLORIDE W/CALCIUM 64MG DELAYED REL TAB PO SCH ×2 (08:36→20:18)
[2022-09-18] MEDS: TIMOLOL MALEATE 0.5% OP SOLN 5 ML BTL OPB SCH (08:37)
--- NOTE | 2022-09-18 08:40 | Electrocardiogram Report ---
Test Reason : Blood Pressure : / mmHG Vent. Rate : 102 BPM Atrial Rate : 102 BPM P-R Int : 130 ms QRS Dur : 092 ms QT Int : 310 ms P-R-T Axes : 032 -15 008 degrees QTc Int : 404 ms Sinus tachycardia Incomplete right bundle branch block Borderline ECG No previous ECGs available Confirmed by Nimesh John ([id number]) on 09/18/2022 8:40:34 AM Referred By: REFERRED SELF Confirmed By:Nimesh John
--- NOTE | 2022-09-18 09:44 | Urology Progress Note ---
Date of Service September 18, 2022 Assessment & Plan (1) Acute UTI: (2) SEN (acute kidney injury): (3) Urinary retention: Plan 76yo/M who presented with SOB and lower abdominal pain admitted with sepsis/UTI, ARF. CT abdomen pelvis on arrival notable for a severely distended bladder l ikely due to chronic bladder outlet obstruction, enlarged prostate, no urinary tract calculus or obstruction. Silva catheter placed by nursing staff with >1L urine output. Afebrile at present (Tmax overnight 38.7C). Hemodynamically stable. Labs show no leukocytosis, stable hemoglobin, creatinine improved from 1.54 - 0.99 today. Urine culture pending, blood cultures prelim no growth x 24 hours. On Cefepime, follow cultures and tailor as culture data becomes available. Silva draining clear yellow urine with good output. Continue to monitor. Continue supportive care and antibiotic therapy. Can consider addition of tamsulosin. Recommend maintaining Silva catheter for 7-10 days for maximum decompression and bladder rest. Will arrange outpatient follow-up with our service for voiding trial and continued care. Urology will sign-off. Please contact us with any further questions, concerns, or changes in patient status. Admission and Anticipated Discharge Date Admission Date: September 17, 2022 Subjective Patient examined at bedside this AM. Awake, sitting in bedside chair on arrival. No acute distress. Reports he is feeling much better since admission. Afebrile at present -He did have a temp of 38.7C overnight. Silva catheter intact, draining clear yellow urine. Tolerating diet, no nausea or vomiting. Denies any pain or discomfort at present. Review of Systems Constitutional: as per Subjective / HPI Gastrointestinal: as per Subjective / HPI Genitourinary: + as per Subjective / HPI Physical Exam Constitutional: well developed and well nourished; no acute distress Respiratory: normal respiratory effort; no respiratory distress and no labored breathing Neurologic: moves all extremities and awake Psychiatric: A+Ox3, euthymic affect Genitourinary: Silva intact draining clear yellow urine Results & Data Vital Signs (Past 12 Hours) Vital Signs Temp Pulse Pulse Resp BP Pulse Ox O2 Del Method 09/18/22 08:04 36.9 C 88 18 114/66 90 Room Air 09/18/22 03:00 37.5 C 90 17 105/64 98 Nasal Cannula 06/26/23 23:00 38.7 C H 100 H 21 106/62 90 Room Air O2 Flow Rate 09/18/22 08:04 09/18/22 03:00 2 09/17/22 23:00 PG Care Time/CCT Total # of Minutes Spent Total Time Spent with Patient: Total time spent is greater than 50% in coordination of care (as documented) at patient's floor/unit and/or counseling patient: Coding Level of Care Code 89628 SUB INP/OBS CARE 2/35MIN Diagnoses Acute UTI N39.0 SEN (acute kidney injury) N17.9 Urinary retention R33.9
--- NOTE | 2022-09-18 15:47 | Hospitalist Progress Note ---
Date of Service September 18, 2022 Assessment & Plan (1) Severe sepsis: (2) Acute UTI: (3) SEN (acute kidney injury): (4) Urinary retention: (5) Thrombocytopenia: Plan 76-year-old male presented with lower abdominal discomfort and urinary urgency along with fever, admitted with UTI and urinary retention Sepsis with UTI-met SIRS criteria with fever and tachycardia on admission. Sepsis resolving. No leukocytosis, Pro-Guy elevated, UA suggestive of UTI -Continue cefepime pending final urine culture results. Urine culture with pinpoint growth as of now, blood culture negative Urine retention-CT reviewed. Seen by urology-recommend continuing Silva at discharge for 7 to 10 days for bladder decompression and follow-up with urology in the office for voiding trial Thrombocytopenia-Lyme, Anaplasma, Babesia negative. No bleeding noted. Monitor platelet count Acute kidney injury-in setting of urinary retention, now on Silva. SEN resolved. Creatinine 1.5->0.99. Status post IV fluid resuscitation. Avoid nephrotoxins. Recheck in a.m. Hypomagnesia-replete, recheck in AM. Elevated Trop-minimally elevated, flat trend. No chest pain. No need for further trending. Echo reviewed-EF 60 to 65%, grade 1 diastolic dysfunction, no significant valve abnormalities Hypoxia-chest x-ray clear. Unclear cause of his hypoxia. Consider CT chest for further evaluation if persists. DVT prophylaxis-subcu heparin Disposition-continue IV cefepime pending urine culture results. Continue Silva at discharge Admission and Anticipated Discharge Date Admission Date: September 17, 2022 Subjective Patient went and examined at bedside. He continues to feel better. He is however still on supplemental oxygen. He had fever again last night but none today yet. No nausea, vomiting abdominal pain, shortness of breath, chest pain. He is requesting to be updated with results as they become available Review of Systems Review of Systems: All systems reviewed & are unremarkable except as noted in Subjective Physical Exam Physical Exam: General: Sitting comfortably in chair, not in distress, on NC HEENT: EOMI, AVERY, MMM Chest: Clear breath sounds bilaterally, no wheezes or crackles CVS: Regular rate and rhythm, normal heart sounds, no murmur Abdomen: Soft, non tender, not distended, normal bowel sounds Neuro: Awake, alert, oriented, conversing well, non focal Extremities: No cyanosis, clubbing or edema : Silva with delmi urine Results & Data Results & Data Vital Signs (Past 12 Hours) Vital Signs Temp Pulse Pulse Resp BP Pulse Ox O2 Del Method 09/18/22 15:21 36.6 C 66 18 114/68 96 Nasal Cannula 09/18/22 12:02 Nasal Cannula 09/18/22 11:34 36.9 C 75 18 100/66 95 Nasal Cannula 09/18/22 08:15 72 09/18/22 08:04 36.9 C 88 18 114/66 90 Room Air O2 Flow Rate 09/18/22 15:21 3 09/18/22 12:02 2 09/18/22 11:34 2 09/18/22 08:15 09/18/22 08:04 Laboratory Results Short CBC 09/18/22 Range/Units 05:27 WBC 9.96 (4.8-10.8) K/ul Hgb 11.8 L (14.0-18.0) g/dl Hct 35.3 L (42.0-52.0) % Plt Count 56 L (130-400) K/uL [facility] 09/18/22 05:27 Sodium 134 L Potassium 4.4 Chloride 107 Carbon Dioxide 23 BUN 18 Creatinine 0.99 D Glucose 102 H Calcium 7.5 L Medications Administered Current Inpatient Medications Acetaminophen (Acetaminophen 325 Mg Tab) 650 mg PO TID [facility] Stop: 10/17/22 13:59 Last Admin: 09/18/22 14:04 Dose: 650 mg Calcium Carbonate (Calcium Carbonate 1250mg Tab) 1,250 mg PO BID [facility] Stop: 10/18/22 08:59 Last Admin: 09/18/22 08:35 Dose: 1,250 mg Promethazine HCl 6.25 mg/ (Sodium Chloride) 50.25 mls @ 201 mls/hr IV Q6H PRN PRN Reason: Nausea And Vomiting Stop: 10/17/22 03:08 Cefepime HCl 2,000 mg/ Syringe 20 mls @ 5 mls/min IV Q12H [facility]; Protocol Stop: 09/27/22 13:59 Last Admin: 09/18/22 14:05 Dose: 5 mls/min Magnesium Chloride (Magnesium Chloride W/Calcium 64mg Delayed Rel Tab) 64 mg PO BID [facility] Stop: 10/18/22 08:59 Last Admin: 09/18/22 08:36 Dose: 64 mg Simvastatin (Simvastatin 10 Mg Tab) 10 mg PO HS [facility] Stop: 10/17/22 20:59 Last Admin: 09/17/22 20:36 Dose: 10 mg Timolol Maleate (Timolol Maleate 0.5% Op Soln 5 Ml Btl) 1 drops OPB DAILY [facility] Stop: 10/17/22 08:59 Last Admin: 09/18/22 08:37 Dose: 1 drops Tramadol HCl (Tramadol Hcl 50 Mg Tablet) 25 - 50 mg PO Q4H PRN PRN Reason: Pain Stop: 10/17/22 03:08 Last Admin: 09/17/22 18:40 Dose: 50 mg
[2022-09-18] MEDS: SIMVASTATIN 10 MG TAB PO SCH (20:18)
[2022-09-19] MEDS: CEFEPIME 2,000 MG in SYRINGE 0 ML IV SCH ×2 (01:31→13:31)
[2022-09-19 06:40] LABS: Hematocrit (blood only) 34.1 % (42.0-52.0); Hemoglobin 11.5 g/dl (14.0-18.0); Mean Corpuscular Hemoglobin 30.8 pg (25.0-34.0); Mean Corpuscular Hgb Conc 33.7 g/dL (32.0-36.0); Mean Corpuscular Volume 91.4 fL (80.0-100.0); Mean Platelet Volume 11.8 fL (9.4-12.4); Platelet Count 58 K/uL (130-400); RDW Coefficient of Variation 13.6 % (11.5-14.5); RDW Standard Deviation 46.3 fL (36.4-46.3); Red Blood Count 3.73 M/uL (4.70-6.10)
[2022-09-19 07:01] LABS: BUN Creatinine Ratio 16.7 (10-20); Calcium 8.1 mg/dl (8.6-10.3); Creatinine Clr Calc Pharmacy 61.6 ml/min; Est GFR (African American) 82.4 ml/min; Est GFR (Non-African American) 71.1 ml/min; Magnesium 1.7 mg/dl (1.7-2.4); Phosphorus 2.4 mg/dl (2.5-4.9)
[2022-09-19 07:11] LABS: D Dimer 7660 ug/L FEU (0-500)
[2022-09-19] MEDS ORDERED: OPTIRAY 320 125ml IV ONE (08:15)
--- NOTE | 2022-09-19 08:59 | CT Scan Report ---
CT ANGIOGRAM OF THE CHEST CLINICAL HISTORY: Sepsis. Dyspnea. COMPARISON STUDY: Chest x-ray dated 09/17/2022. TECHNIQUE: Following the IV administration of 120 cc of Optiray 320, CT angiogram of the chest was pe rformed from the upper abdomen to the thoracic inlet utilizing the pulmonary embolus protocol. Images are reviewed in the axial, sagittal, and coronal planes. 3-D MIPS images are created and assessed. I V contrast was administered without complication. A dose lowering technique was utilized adhering to the principles of ALARA. FINDINGS: Thyroid: Imaged portions of the thyroid gland are normal in size and attenuation. Thoracic aorta: The thoracic aorta is normal in caliber and demonstrates variant 3-vessel arch anatom y. There is a bovine arch, and the left vertebral artery arises directly from the thoracic aorta as t he third branch. No dissection is seen. Pulmonary vasculature: The pulmonary trunk is normal in caliber. There are numerous bilateral segment al and subsegmental pulmonary emboli. The largest segmental pulmonary emboli are seen in the left low er lobe on images #98 and #103. Subsegmental pulmonary emboli are seen in all lobes. The main and lob ar branches are clear. Heart: The heart is mildly enlarged and without pericardial effusion. Lungs and pleural spaces: There is mild intralobular septal thickening as well as diffuse peribronchi al thickening. No airspace consolidation is seen typical for pneumonia. There are scattered calcified granulomas. There are trace pleural effusions with dependent atelectasis. The trachea and central ai rways are clear. Subpleural opacities at the right apex may represent tiny pulmonary infarcts. Mediastinum: There is no mediastinal lymphadenopathy. Bridget: Clear. Axillae: There is no axillary lymphadenopathy. Upper abdomen: Partially visualized upper abdominal viscera is within normal limits. Skeletal structures: The skeletal structures are osteopenic. Degenerative change is noted in the shou lders and spine. No lytic or blastic bony lesions are seen. IMPRESSION: 1. There are numerous segmental and subsegmental pulmonary emboli seen bilaterally. 2. Mild cardiac enlargement with findings suggestive of mild fluid overload/congestive change. 3. Trace pleural effusions. 4. Subpleural opacities at the right apex may represent tiny pulmonary infarcts. 5. Additional findings as above. ACT 112: Negative or not required by law. Electronically signed by: Jin Rae M.D. 09/19/2022 8:57 AM
--- NOTE | 2022-09-19 10:03 | Ultrasound Report ---
BILATERAL LOWER EXTREMITY VENOUS DOPPLER CLINICAL HISTORY: Bilateral PE. R/o DVT COMPARISON STUDY: No previous studies for comparison. TECHNIQUE: Sonography of the deep venous system of the bilateral lower extremities was performed. Co mpression and augmentation were evaluated. FINDINGS: The bilateral common femoral, superficial femoral and popliteal veins were compressible. A ugmentation was normal. Flow was shown within the deep calf vessels. IMPRESSION: No evidence of deep venous thrombus within the bilateral lower extremities. ACT 112: Negative or not required by law. Electronically signed by: Christiano Sierra M.D. 09/19/2022 10:02 AM
[2022-09-19] MEDS: ACETAMINOPHEN 325 MG TAB PO SCH ×3 (10:11→21:05)
[2022-09-19] MEDS: CALCIUM CARBONATE 1250MG TAB PO SCH ×2 (10:12→21:04)
[2022-09-19] MEDS: APIXABAN 5 MG TABLET PO SCH ×2 (10:13→21:05)
[2022-09-19] MEDS: MAGNESIUM CHLORIDE W/CALCIUM 64MG DELAYED REL TAB PO SCH ×2 (10:13→21:05)
[2022-09-19] MEDS: TIMOLOL MALEATE 0.5% OP SOLN 5 ML BTL OPB SCH (10:14)
--- NOTE | 2022-09-19 14:15 | Hospitalist Progress Note ---
Date of Service September 19, 2022 Assessment & Plan (1) Acute saddle pulmonary embolism without acute cor pulmonale: (2) Hypoxia: (3) SIRS (systemic inflammatory response syndrome): (4) Urinary retention: (5) Elevated PSA: (6) SEN (acute kidney injury): (7) Thrombocytopenia: Plan 76-year-old male presented with lower abdominal discomfort and urinary urgency along with fever, admitted with UTI and urinary retention. However urine clx negative, blood clx negative but bilateral PE without DVT. Started on eliquis. Empiric cefepime deescalated to cefdinir. CTA chest 1. There are numerous segmental and subsegmental pulmonary emboli seen bilaterally. 2. Mild cardiac enlargement with findings suggestive of mild fluid overload/congestive change. 3. Trace pleural effusions. 4. Subpleural opacities at the right apex may represent tiny pulmonary infarcts. Acute bilateral pulmonary embolism without cor pulmonale- 1st episode, hemodynamically stable, No DVT in LE, no evidence of right heart strain in echo or CT. CT imaging reviewed as above. No other provoking factors identified. No personal or family history of VTE - PSA elevated at 8 and has urinary retention. Last colonoscopy was 8 years ago with removal of polyps - Recommended OP follow up to rule out for age appropriate cancer screening- colonoscopy and prostate evaluation. - Started on eliquis. CM to [place] check. Hypoxia- due to bilateral PE. Continue to wean off oxygen as tolerated. Will do 2 step eval in am if needed. SIRS- met SIRS criteria with fever and tachycardia on admission, however sepsis work up negative. Blood and urine clx negative. CT with no PNA. No leukocytosis. SIRS likely from bilateral PE, however given elevated procal, abnormal UA and his urinary issues, will continue empiric ABx. Will deescalate cefepime to cefdinir. Sepsis ruled out. Urinary retention-CT reviewed. Seen by urology-recommend continuing Silva at discharge for 7 to 10 days for bladder decompression and follow-up with urology in the office for voiding trial. Updated uro regarding his PE, elevated PSA and need for OP follow up to r/o prostate Ca. Thrombocytopenia-Lyme, Anaplasma, Babesia negative. No bleeding noted. Plt count slightly improved. Possible consumptive coagulopathy with blood clots. Will monitor. Acute kidney injury-in setting of urinary retention, now on Silva. SEN resolved. Creatinine 1.5->0.99. Status post IV fluid resuscitation. Avoid nephrotoxins. Hypomagnesia-resolved Elevated Trop-minimally elevated, flat trend. No chest pain. No need for further trending. Echo reviewed-EF 60 to 65%, grade 1 diastolic dysfunction, no significant valve abnormalities DVT prophylaxis- Eliquis Disposition- Anticipate discharge tomorrow if remains stable- will need 2 step O2 eval. Continue Silva at discharge Admission and Anticipated Discharge Date Admission Date: September 17, 2022 Subjective Patient was seen and examined at bedside. No more fever. Still hypoxic. No N/V/CP. Discussed about his PE on CT and need for OP evaluation with colonoscopy and prostate eval with urology. Review of Systems Review of Systems: All systems reviewed & are unremarkable except as noted in Subjective Physical Exam Physical Exam: General: Sitting comfortably in chair, not in distress, on NC HEENT: EOMI, AVERY, MMM Chest: Clear breath sounds bilaterally, no wheezes or crackles CVS: Regular rate and rhythm, normal heart sounds, no murmur Abdomen: Soft, non tender, not distended, normal bowel sounds Neuro: Awake, alert, oriented, conversing well, non focal Extremities: No cyanosis, clubbing or edema : Silva with delmi urine Results & Data Results & Data Vital Signs (Past 12 Hours) Vital Signs Temp Pulse Pulse Resp BP Pulse Ox O2 Del Method 09/19/22 11:51 36.3 C L 68 18 112/74 95 Room Air 09/19/22 08:41 Nasal Cannula 09/19/22 07:18 64 09/19/22 07:09 36.7 C 70 18 123/70 93 Room Air 09/19/22 03:00 37.0 C 65 19 116/64 95 Nasal Cannula O2 Flow Rate 09/19/22 11:51 09/19/22 08:41 2 09/19/22 07:18 09/19/22 07:09 09/19/22 03:00 3 Laboratory Results Short CBC 09/19/22 Range/Units 05:38 WBC 6.50 (4.8-10.8) K/ul Hgb 11.5 L (14.0-18.0) g/dl Hct 34.1 L (42.0-52.0) % Plt Count 58 L (130-400) K/uL [facility] 09/19/22 05:38 Sodium 139 Potassium 4.0 Chloride 110 H Carbon Dioxide 23 BUN 17 Creatinine 1.02 Glucose 91 Calcium 8.1 L Medications Administered Current Inpatient Medications Acetaminophen (Acetaminophen 325 Mg Tab) 650 mg PO TID [facility] Stop: 10/17/22 13:59 Last Admin: 09/19/22 13:30 Dose: 650 mg Apixaban (Apixaban 5 Mg Tablet) 10 mg PO BID [facility] Stop: 09/25/22 21:01 Last Admin: 09/19/22 10:13 Dose: 10 mg Calcium Carbonate (Calcium Carbonate 1250mg Tab) 1,250 mg PO BID [facility] Stop: 10/18/22 08:59 Last Admin: 09/19/22 10:12 Dose: 1,250 mg Cefdinir (Cefdinir 300 Mg Cap) 300 mg PO BID [facility]; Protocol Stop: 09/24/22 20:59 Promethazine HCl 6.25 mg/ (Sodium Chloride) 50.25 mls @ 201 mls/hr IV Q6H PRN PRN Reason: Nausea And Vomiting Stop: 10/17/22 03:08 Magnesium Chloride (Magnesium Chloride W/Calcium 64mg Delayed Rel Tab) 64 mg PO BID [facility] Stop: 10/18/22 08:59 Last Admin: 09/19/22 10:13 Dose: 64 mg Simvastatin (Simvastatin 10 Mg Tab) 10 mg PO HS [facility] Stop: 10/17/22 20:59 Last Admin: 09/18/22 20:18 Dose: 10 mg Timolol Maleate (Timolol Maleate 0.5% Op Soln 5 Ml Btl) 1 drops OPB DAILY [facility] Stop: 10/17/22 08:59 Last Admin: 09/19/22 10:14 Dose: 1 drops Tramadol HCl (Tramadol Hcl 50 Mg Tablet) 25 - 50 mg PO Q4H PRN PRN Reason: Pain Stop: 10/17/22 03:08 Last Admin: 09/17/22 18:40 Dose: 50 mg
[2022-09-19 16:17] LABS: Babesia microti DNA Not Detected (Not Detected)
[2022-09-19] MEDS: SIMVASTATIN 10 MG TAB PO SCH (21:05)
[2022-09-19] MEDS: CEFDINIR 300 MG CAP PO SCH (21:40)
[2022-09-20 06:49] LABS: Hemoglobin 12.1 g/dl (14.0-18.0); Mean Corpuscular Hemoglobin 30.9 pg (25.0-34.0); Mean Corpuscular Hgb Conc 33.6 g/dL (32.0-36.0); Mean Corpuscular Volume 91.8 fL (80.0-100.0); Mean Platelet Volume 10.9 fL (9.4-12.4); Platelet Count 90 K/uL (130-400); RDW Coefficient of Variation 13.6 % (11.5-14.5); Red Blood Count 3.92 M/uL (4.70-6.10); White Blood Count 5.71 K/ul (4.8-10.8)
[2022-09-20 07:10] LABS: BUN Creatinine Ratio 15.3 (10-20); Calcium 8.7 mg/dl (8.6-10.3); Creatinine Clr Calc Pharmacy 64.1 ml/min; Est GFR (African American) 86.5 ml/min; Est GFR (Non-African American) 74.6 ml/min; Potassium 4.4 mmol/L (3.5-5.1)
[2022-09-20] MEDS: CALCIUM CARBONATE 1250MG TAB PO SCH (07:48)
[2022-09-20] MEDS: APIXABAN 5 MG TABLET PO SCH (07:48)
[2022-09-20] MEDS: TIMOLOL MALEATE 0.5% OP SOLN 5 ML BTL OPB SCH (07:48)
[2022-09-20] MEDS: MAGNESIUM CHLORIDE W/CALCIUM 64MG DELAYED REL TAB PO SCH (07:48)
[2022-09-20] MEDS: CEFDINIR 300 MG CAP PO SCH (07:48)
[2022-09-20] MEDS: ACETAMINOPHEN 325 MG TAB PO SCH (07:48)
--- NOTE | 2022-09-20 17:27 | Discharge Summary ---
Date of Service September 20, 2022 Admission HPI Per Admitting Provider History obtained from patient and records. Medical history significant for hyperlipidemia, BPH, glaucoma Few days history of achy lower abdominal discomfort associated with hematuria, urgency. Patient noted fever, chills. Shortness of breath from weakness as per patient. Poor appetite. No chest pain, no cough symptoms, no headache symptoms. Denies diarrhea. No recollection of recent tick bites but acknowledges presence of ticks around residence. Patient brought to ER for evaluation. SBP 90s upon arrival at the ER. Cefepime and doxycycline given for sepsis. Medical History as above Surgical History : None Family History : Stomach cancer, DM, stroke Personal/Social history : Past pipe use, no EtOH intake Admission Exam Per Admitting Provider GENERAL: Comfortable, pleasant, no respiratory distress SKIN: Pallor, warm HEENT: Alopecia, bespectacled, pale palpebral conjunctivae, no ptosis, dry buccal mucosa, nasal cannula in place NECK : Supple, no tenderness CHEST : CTA, no tenderness HEART : RRR, no obvious murmurs ABDOMEN: Some distention, hypogastric tenderness EXTREMITIES : No LE swelling/tenderness, no other conspicuous deformities noted NEUROLOGIC : Coherent, no facial asymmetry, no other gross focality Principal Diagnosis Acute bilateral pulmonary embolism without cor pulmonale, Hypoxia due to pulmonary embolism, Urinary retention Discharge Exam General: Sitting comfortably in chair, not in distress, on NC HEENT: EOMI, AVERY, MMM Chest: Clear breath sounds bilaterally, no wheezes or crackles CVS: Regular rate and rhythm, normal heart sounds, no murmur Abdomen: Soft, non tender, not distended, normal bowel sounds Neuro: Awake, alert, oriented, conversing well, non focal Extremities: No cyanosis, clubbing or edema : Noland with delmi urine Discharge Data Allergies Allergy/AdvReac Type Severity Reaction Status Date / Time Sulfa (Sulfonamide Allergy Intermediate Rash Verified 09/17/22 04:08 Antibiotics) Consultations 09/17/22 03:20 ED Decision to Admit Stat 09/17/22 06:13 Consult Urology Routine Ordered Studies 09/17/22 03:04 CT Abd and Pelvis [CT abd pelvis wo con] Stat 09/19/22 07:18 CT for pulmonary embolism PE [CT angio chest PE protocol] Urgent 09/19/22 09:04 US leg [US venous doppler LE BI] Routine Laboratory Results WBC 5.71 K/ul (4.8-10.8) 09/20/22 05:45 RBC 3.92 M/uL (4.70-6.10) L 09/20/22 05:45 Hgb 12.1 g/dl (14.0-18.0) L 09/20/22 05:45 Hct 36.0 % (42.0-52.0) L 09/20/22 05:45 MCV 91.8 fL (80.0-100.0) 09/20/22 05:45 MCH 30.9 pg (25.0-34.0) 09/20/22 05:45 MCHC 33.6 g/dL (32.0-36.0) 09/20/22 05:45 RDW Std Deviation 46.0 fL (36.4-46.3) 09/20/22 05:45 RDW Coeff of Kimmy 13.6 % (11.5-14.5) 09/20/22 05:45 Plt Count 90 K/uL (130-400) L D 09/20/22 05:45 MPV 10.9 fL (9.4-12.4) 09/20/22 05:45 Immature Gran % (Auto) 0.9 % 09/18/22 05:27 Neut % (Auto) 67.9 % 09/18/22 05:27 Lymph % (Auto) 10.6 % 09/18/22 05:27 [place] % (Auto) 20.2 % 09/18/22 05:27 Eos % (Auto) 0.2 % 09/18/22 05:27 Baso % (Auto) 0.2 % 09/18/22 05:27 Reticulocyte % (Auto) 1.4 % (0.5-2.0) 09/17/22 02:36 Neut # (Auto) 6.76 K/uL (1.40-6.50) H 09/18/22 05:27 Lymph # (Auto) 1.06 K/uL (1.2-3.4) L 09/18/22 05:27 [place] # (Auto) 2.01 K/uL (0.11-0.59) H 09/18/22 05:27 Eos # (Auto) 0.02 K/uL (0-0.50) 09/18/22 05:27 Baso # (Auto) 0.02 K/uL (0-0.2) 09/18/22 05:27 Reticulocyte # 0.05 10^6/uL (0.02-0.10) 09/17/22 02:36 Immature Gran # (Auto) 0.09 K/uL (0.01-0.20) 09/18/22 05:27 Platelet Estimate Decreased (Normal) L 09/17/22 00:38 RBC Morphology Unremarkable 09/17/22 00:38 Peripher Smr Path Cons 09/17/22 02:36 APTT 28.6 Seconds (21.0-31.0) 09/17/22 00:38 PTT Ratio 1.0 09/17/22 00:38 D-Dimer 7660 ug/L FEU (0-500) H* 09/19/22 05:38 VBG pH 7.45 (7.36-7.41) H 09/17/22 00:38 VBG pCO2 32 mmHg (38-50) L 09/17/22 00:38 VBG pO2 66 mmHg 09/17/22 00:38 VBG HCO3 22 mmol/L 09/17/22 00:38 VBG O2 Saturation 93.7 % 09/17/22 00:38 VBG Base Excess -1.0 mEq/L 09/17/22 00:38 Sodium 140 mmol/L (136-145) 09/20/22 05:45 Potassium 4.4 mmol/L (3.5-5.1) 09/20/22 05:45 Chloride 108 mmol/L (98-107) H 09/20/22 05:45 Carbon Dioxide 27 mmol/L (21-32) 09/20/22 05:45 Anion Gap 5 (3-11) 09/20/22 05:45 BUN 15 mg/dl (6-23) 09/20/22 05:45 Creatinine 0.98 mg/dl (0.6-1.4) 09/20/22 05:45 Est Cr Clr Drug Dosing 64.1 ml/min 09/20/22 05:45 Est GFR ( Amer) 86.5 ml/min 09/20/22 05:45 Est GFR (Non-Af Amer) 74.6 ml/min 09/20/22 05:45 BUN/Creatinine Ratio 15.3 (10-20) 09/20/22 05:45 Glucose 90 mg/dl (70-99(Fasting)) 09/20/22 05:45 Estimat Average Glucose 108 mg/dl 09/17/22 00:38 Hemoglobin A1c 5.4 % (4.5-5.6) 09/17/22 00:38 Lactate 1.2 mmol/L (0.4-2.0) 09/17/22 00:38 Calcium 8.7 mg/dl (8.6-10.3) 09/20/22 05:45 Phosphorus 2.4 mg/dl (2.5-4.9) L 09/19/22 05:38 Magnesium 1.7 mg/dl (1.7-2.4) 09/19/22 05:38 Iron 11 mcg/dl (35-175) L 09/17/22 03:55 Transferrin 164 mg/dl (200-360) L 09/17/22 03:55 Ferritin 389.2 ng/ml (8-388) H 09/17/22 03:55 Total Bilirubin 0.9 mg/dl (0.2-1.0) 09/17/22 00:38 Direct Bilirubin 0.3 mg/dl (0-0.2) H 09/17/22 00:38 AST 48 U/L (13-39) H 09/17/22 00:38 ALT 37 U/L (7-52) 09/17/22 00:38 Alkaline Phosphatase 41 U/L (34-104) 09/17/22 00:38 Total Creatine Kinase 181 U/L (30-223) 09/17/22 00:38 Troponin I High Sens 33.3 pg/ml (0-20) H 09/17/22 07:06 Total Protein 6.3 gm/dl (6.0-8.3) 09/17/22 00:38 Albumin 3.4 gm/dl (3.4-5.0) 09/17/22 00:38 Prostate Specific Ag 8.414 ng/ml (0-4) H 09/19/22 10:10 Vitamin B12 365 pg/ml (180-914) 09/17/22 02:36 Folate 20.42 ng/ml (>5.38) 09/17/22 02:36 Procalcitonin 4.64 ng/ml (0-0.5) H 09/17/22 00:38 Urine Color Yellow 09/17/22 02:00 Urine Appearance Cloudy (Clear) A 09/17/22 02:00 Urine pH 6.0 (4.5-7.5) 09/17/22 02:00 Ur Specific [place] 1.016 (1.000-1.030) 09/17/22 02:00 Urine Protein 1+ (Negative) H 09/17/22 02:00 Urine Glucose (UA) Negative (Negative) 09/17/22 02:00 Urine Ketones Negative (Negative) 09/17/22 02:00 Urine Blood 3+ (Negative) H 09/17/22 02:00 Urine Nitrite Positive (Negative) A 09/17/22 02:00 Urine Bilirubin Negative (Negative) 09/17/22 02:00 Urine Urobilinogen Negative (Negative) 09/17/22 02:00 Ur Leukocyte Esterase 3+ (Negative) H 09/17/22 02:00 Urine WBC (Auto) >30 /hpf (0-5) H 09/17/22 02:00 Urine RBC (Auto) >30 /hpf (0-4) H 09/17/22 02:00 U Hyaline Cast (Auto) 0 /lpf (0-5) 09/17/22 02:00 U Epithel Cells (Auto) 5-10 /lpf (0-5) H 09/17/22 02:00 Urine Bacteria (Auto) Negative (Negative) 09/17/22 02:00 Urine Yeast Not Reportable 09/17/22 02:00 Anaplasma Smear See Comment 09/17/22 02:36 Babesia Smear See Comment 09/17/22 02:36 Babesia microti DNA PCR Not Detected (Not Detected) 09/17/22 02:36 Lyme Disease IgG Ab Negative (Negative) 09/17/22 02:36 Lyme Disease IgM Ab Negative (Negative) 09/17/22 02:36 SARS-CoV-2 (PCR) NEGATIVE (Negative) 09/17/22 00:40 Influenza Type A (PCR) Negative (Neg) 09/17/22 00:40 Influenza Type B (PCR) Negative (Neg) 09/17/22 00:40 RSV (RT-PCR) Negative (Neg) 06/26/23 00:40 Blood Type O Negative 09/17/22 03:55 Antibody Screen NEGATIVE 09/17/22 03:55 Impressions Chest X-Ray 09/17/22 00:32 SINGLE VIEW CHEST CLINICAL HISTORY: Sepsis. FINDINGS: An AP, portable, upright chest radiograph is obtained. No prior studies are available for comparison at the time of dictation. The cardiomedia stinal silhouette is top normal for projection. There is bibasilar scarring/atelectasis. The lungs and pleural spaces are otherwise clear. No pneumothorax is seen. The skeletal structures are osteopenic. The bony thorax is grossly intact. IMPRESSION: No acute cardiopulmonary abnormality. ACT 112: Negative or not required by law. Electronically signed by: Jin Rae M.D. 09/17/2022 7:11 AM Abdomen/Pelvis CT 09/17/22 03:04 Exam(s): CT ABDOMEN + PELVIS Without Contrast EXAM: CT Abdomen and Pelvis Without Intravenous Contrast CLINICAL HISTORY: Reason for exam: abd pain. TECHNIQUE: Axial computed tomography images of the abdomen and pelvis without intravenous contrast. Automated exposure control was utilized for the study. A dose lowering technique was utilized adhering to the principles of ALARA. COMPARISON: No relevant prior studies available. FINDINGS: Lung bases: Mild areas of subsegmental atelectasis in both lung bases. ABDOMEN: Liver: Unremarkable. Gallbladder and bile ducts: Unremarkable. No calcified stones. No ductal dilation. Pancreas: Unremarkable. No ductal dilation. Spleen: Unremarkable. No splenomegaly. Adrenals: Unremarkable. No mass. Kidneys and ureters: Very extensive parapelvic cysts in both kidneys. Homogeneous 3.7 cm cortical cyst in the right kidney. No urinary tract calculus or obstruction. Stomach and bowel: Unremarkable. No obstruction. No mucosal thickening. PELVIS: Appendix: No findings to suggest acute appendicitis. Bladder: Very distended urinary bladder with the dome reaching the level of the umbilicus. The bladder wall is trabeculated in some areas. Reproductive: Enlarged, irregular prostate gland, bulging into the base of the bladder. ABDOMEN and PELVIS: Intraperitoneal space: Unremarkable. No free air. No significant fluid collection. Bones/joints: No acute fracture. No dislocation. Soft tissues: Unremarkable. Vasculature: Unremarkable. No abdominal aortic aneurysm. Lymph nodes: Unremarkable. No enlarged lymph nodes. IMPRESSION: No acute findings in the abdomen or pelvis. Very distended urinary bladder with trabeculated wall. This likely is due to chronic bladder outlet obstruction. The prostate gland is enlarged and lobulated, extending into the base of the bladder. Electronically signed by: Johnnie Webb MD 09/17/22 06:10 AM Chest CTA 09/19/22 07:18 CT ANGIOGRAM OF THE CHEST CLINICAL HISTORY: Sepsis. Dyspnea. COMPARISON STUDY: Chest x-ray dated 09/17/2022. TECHNIQUE: Following the IV administration of 120 cc of Optiray 320, CT angiogram of the chest was performed from the upper abdomen to the thoracic inlet utilizing the pulmonary embolus protocol. Images are reviewed in the axial, sagittal, and coronal planes. 3-D MIPS images are created and assessed. IV contrast was administered without complication. A dose lowering technique was utilized adhering to the principles of ALARA. FINDINGS: Thyroid: Imaged portions of the thyroid gland are normal in size and attenuation. Thoracic aorta: The thoracic aorta is normal in caliber and demonstrates variant 3-vessel arch anatomy. There is a bovine arch, and the left vertebral artery arises directly from the thoracic aorta as the third branch. No dissection is seen. Pulmonary vasculature: The pulmonary trunk is normal in caliber. There are numerous bilateral segmental and subsegmental pulmonary emboli. The largest segmental pulmonary emboli are seen in the left lower lobe on images #98 and #103. Subsegmental pulmonary emboli are seen in all lobes. The main and lobar branches are clear. Heart: The heart is mildly enlarged and without pericardial effusion. Lungs and pleural spaces: There is mild intralobular septal thickening as well as diffuse peribronchial thickening. No airspace consolidation is seen typical for pneumonia. There are scattered calcified granulomas. There are trace pleural effusions with dependent atelectasis. The trachea and central airways are clear. Subpleural opacities at the right apex may represent tiny pulmonary infarcts. Mediastinum: There is no mediastinal lymphadenopathy. Bridget: Clear. Axillae: There is no axillary lymphadenopathy. Upper abdomen: Partially visualized upper abdominal viscera is within normal limits. Skeletal structures: The skeletal structures are osteopenic. Degenerative change is noted in the shoulders and spine. No lytic or blastic bony lesions are seen. IMPRESSION: 1. There are numerous segmental and subsegmental pulmonary emboli seen bilaterally. 2. Mild cardiac enlargement with findings suggestive of mild fluid overload/congestive change. 3. Trace pleural effusions. 4. Subpleural opacities at the right apex may represent tiny pulmonary infarcts. 5. Additional findings as above. ACT 112: Negative or not required by law. Electronically signed by: Jin Rae M.D. 09/19/2022 8:57 AM Venous Doppler Study 09/19/22 09:04 BILATERAL LOWER EXTREMITY VENOUS DOPPLER CLINICAL HISTORY: Bilateral PE. R/o DVT COMPARISON STUDY: No previous studies for comparison. TECHNIQUE: Sonography of the deep venous system of the bilateral lower extremities was performed. Compression and augmentation were evaluated. FINDINGS: The bilateral common femoral, superficial femoral and popliteal veins were compressible. Augmentation was normal. Flow was shown within the deep calf vessels. IMPRESSION: No evidence of deep venous thrombus within the bilateral lower extremities. ACT 112: Negative or not required by law. Electronically signed by: Christiano Sierra M.D. 09/19/2022 10:02 AM Hospital Course (1) Acute saddle pulmonary embolism without acute cor pulmonale: (2) Hypoxia: (3) SIRS (systemic inflammatory response syndrome): (4) Urinary retention: (5) Elevated PSA: (6) SEN (acute kidney injury): (7) Thrombocytopenia: Plan 76-year-old male presented with lower abdominal discomfort and urinary urgency along with fever, admitted with UTI and urinary retention. However urine clx negative, blood clx negative but found to have bilateral PE without DVT. Started on eliquis. Empiric cefepime deescalated to cefdinir. Had hypoxia initially but resolved once started on eliquis yesterday. 2 step O2 eval done today was unremarkable. He feels good and stable for discharge. He is being discharged on noland for bladder decompression with OP uro follow up in 7-10 days for voiding trial and further work up. Being discharged on eliquis and cefdinir along with flomax. Recommended follow up with PCP for age appropriate cancer screening- colonoscopy and prostate eval. CTA chest 1. There are numerous segmental and subsegmental pulmonary emboli seen bilaterally. 2. Mild cardiac enlargement with findings suggestive of mild fluid overload/congestive change. 3. Trace pleural effusions. 4. Subpleural opacities at the right apex may represent tiny pulmonary infarcts. Acute bilateral pulmonary embolism without cor pulmonale- 1st episode, hemodynamically stable, No DVT in LE, no evidence of right heart strain in echo or CT. CT imaging reviewed as above. No other provoking factors identified. No personal or family history of VTE - PSA elevated at 8 and has urinary retention. Last colonoscopy was 8 years ago with removal of polyps - Recommended OP follow up to rule out for age appropriate cancer screening- colonoscopy and prostate evaluation. - Started on eliquis 10 mg bd for 1 week then 5 mg bd for at least 3-6 months, final duration as per PCP. Patient agreeable to [place] eliquis Hypoxia- due to bilateral PE. Resolved. 2 step O2 eval unremarkable. SIRS- met SIRS criteria with fever and tachycardia on admission, however sepsis work up negative. Blood and urine clx negative. CT with no PNA. No leukocytosis. SIRS likely from bilateral PE, however given elevated procal, abnormal UA and his urinary issues, empiric antibiotic changed to cefdinir at discharge for 3 more days. Sepsis ruled out. Urinary retention-CT reviewed. Seen by urology-recommend continuing Noland at discharge for 7 to 10 days for bladder decompression and follow-up with urology in the office for voiding trial. Updated uro regarding his PE, elevated PSA and need for OP follow up to r/o prostate Ca. Thrombocytopenia-Lyme, Anaplasma, Babesia negative. No bleeding noted. Plt count slightly improved. Possible consumptive coagulopathy with blood clots. OP follow up with PCP Acute kidney injury-in setting of urinary retention, now on Noland. SEN resolved. Creatinine 1.5->0.99. Status post IV fluid resuscitation. Avoid nephrotoxins. Hypomagnesia-resolved Elevated Trop-minimally elevated, flat trend. No chest pain. No need for further trending. Echo reviewed-EF 60 to 65%, grade 1 diastolic dysfunction, no significant valve abnormalities Total Time Total Time Spent Total Time Spent (In Minutes): 40 Discharge Plan Discharge Items Patient Disposition: Home - Self-Care Reason For Visit: SEPSIS, LOW BP Discharge Diagnosis: Acute bilateral pulmonary embolism without cor pulmonale, Hypoxia due to pulmonary embolism, Urinary retention Activity: Resume your previous activity Non-emergency contact: Primary Care Provider Call non-emergency contact if: you have any medication questions and your symptoms worsen Follow-up/Referrals: Hudson Robin MD [Primary Care Provider] - Diet: Regular Addtl Attending Provider Instructions: Continue eliquis 2 tab (10 mg) twice daily for 6 days, then 1 tab (5 mg) twice daily for at least 3-6 months. Watch out for bleeding or falls. Follow up with your family doctor for final duration of the blood thinner. Follow up with [facility] doctor for age appropriate cancer screening. Recommend colonoscopy and urology evaluation. Continue noland and follow up with urology in the office for voiding trial as well as further evaluation of prostate Continue cefdinir 1 tab twice daily for 3 more days. Start flomax 1 tab daily for your urinary retention. Addtl Body Engineer Provider Instructions: The urology office will contact you to arrange a follow-up visit. Please call our office at [phone] with any questions, concerns or need to reschedule appointments for any reason. We are happy to assist you. Noland Catheter care: Keep the catheter well secured with either a leg back or leg strap with large bag. Empty your bag when it's about half full. Use mild soap (such as Dove or Dial) and water to wash the catheter and the head of your penis daily, or more frequently if needed. You may shower as normal. Please avoid tub baths or soaking until catheter removed and incisions well healed. Pending Studies at Discharge: No Stand-Alone Forms: My [facility] Birchbox, Smoking Cessation Medications and DC Order Prescriptions: New Eliquis 5 mg Tablet 5 mg PO BID Qty: 60 0RF Rx Instructions: 2 tab twice daily for 6 days, then 1 tab twice daily tamsulosin [Flomax] 0.4 mg capsule 0.4 mg PO DAILY Qty: 30 0RF cefdinir 300 mg Capsule 300 mg PO BID 3 Days Qty: 6 0RF Continued simvastatin 10 mg tablet 10 mg PO HS timolol maleate 0.5 % drops 1 drp OPB DAILY aspirin 81 mg PO DAILY Discharge Orders: Discharge Order (Routine); Ordered 09/20/22 Ordered By: Javier Mack Admission Data Admit Date/Time: 09/17/22 03:07 Attending Provider: Javier Mack Admit Provider: Jose Grigsby Primary Care Provider: Hudson Robin Other Providers: Jose Grigsby ; Nimesh Sood ; Corey Cook ; Pepe Palmer ; Linda Barclay ; Bennett Hirsch ; Ariela Naik ; Makayla Coates ; Elie Galaviz ; Julius Quinones ; Ruby Banda ; Clay Sparrow ; Rudi Jarvis Other Interventions: Discharge Summary Assessment (RN) Last Done: 09/20/22 12:54
[2022-09-22 01:38] LABS: Q Fever IgG, Phase I NEGATIVE; Q Fever Phase I IgM Antibody NEGATIVE; Q Fever Phase II IgG Antibody NEGATIVE; Q Fever Phase II IgM Antibody NEGATIVE; R. typhi IgG Ab NOT DETECTED; R. typhi IgM Ab NOT DETECTED; RMSF IgG Ab NOT DETECTED; RMSF IgM Ab NOT DETECTED
== END 2022-09-20 13:30 | disposition home or self-care (01) | DRG 176 ==
LOC: ED 00:13 → 2S 03:07